=== PATIENT | female | born 1945 | race Caucasian/White ===

== ENCOUNTER 2018-10-13 00:36 | Outpatient (CLI) | payer MEDICARE, SELFPAY ==
--- NOTE | 2018-10-13 12:10 | DI.MAMMO_ITS ---
SYMPTOM/DIAGNOSIS: SCREENING, Z12.31 MAMMOGRAMS: Mammograms were interpreted according to the usual protocol including computer analysis with CAD system, tomosynthesis and C view imaging. Comparison with prior examinations. Breast density B. No suspicious masses or microcalcifications are seen. There is no definite evidence of malignancy. IMPRESSION: Negative mammogram. Routine screening is recommended. Category I. MQSA ASSESSMENT OF FINDINGS: Negative. Category 1. Patient will receive a letter notifying them of these results. BI-RADS category B. There are scattered areas of fibroglandular density.
== END 2018-10-13 00:56 ==
PROVIDERS: PCP Family Medicine; Visit Provider Family Medicine
DX: Z12.31 Encounter for screening mammogram for malignant neoplasm of breast (principal)
CPT/HCPCS: 77063; 77067

== ENCOUNTER 2018-11-04 15:20 | Outpatient (REF) | payer MEDICARE, SELFPAY ==
[2018-11-04 21:54] LABS: Abs Immature Grans 0.01 k/cumm (0.0-0.09); Absolute Basophil Count 0.01 k/cumm (0.0-0.2); Absolute Eosinophil Count 0.15 k/cumm (0.0-0.7); Absolute Monocyte Count 0.36 k/cumm (0.11-0.7); Absolute Neutrophil Count 4.46 k/cumm (1.2-6.7); Basophils % 0.1; Eosinophils % 2.2; HCT 41.4 % (36.0-46.0); HGB 13.7 g/dL (12.0-15.5); Immature Grans % 0.1; Lymphocytes % 27.6; Mean Corp. HGB Concentration 33.1 g/dL (32.0-36.0); Mean Corpuscular Hemoglobin 29.1 pg (27.0-33.0); Mean Corpuscular Volume 87.9 fL (80-95); Mean Platelet Volume 10.7 fL (8.0-11.0); Monocytes % 5.2; Neutrophils % 64.8; Platelet Count 287 x1000/uL (130-400); RBC 4.71 m/cumm (4.00-5.20); RBC Distribution Width 14.5 % (11.7-14.6); White Blood Cell Count 6.89 k/cumm (4.4-10.8)
[2018-11-04 22:21] LABS: ALT 34 U/L (12-78); AST 31 U/L (15-37); Alkaline Phosphatase 126 U/L (46-116); Anion Gap 11.1 mmol/L (3-11); BUN 23 mg/dL (7-18); Bilirubin, Total 0.3 mg/dL (0.2-1.0); CO2 24.9 mmol/L (21.0-32.0); CREATININE 1.04 mg/dL (0.55-1.02); Calcium 9.5 mg/dL (8.5-10.1); Chloride 100 mmol/L (98-107); Estimated GFR 52.09 (mL/min/1.73m2); Glucose 143 mg/dL (70-100); Potassium 3.7 mmol/L (3.5-5.1); Sodium 136 mmol/L (136-145); TSH (W/Ref FT4) 1.71 uIU/mL (0.358-3.74); Total Protein 6.9 g/dL (6.4-8.2)
== END 2018-11-04 15:40 ==
LOC: NCHCN 15:20
PROVIDERS: PCP Family Medicine; Visit Provider Specialist/Technologist Athletic Trainer
DX: R73.03 Prediabetes (principal); I10 Essential (primary) hypertension; Z01.818 Encounter for other preprocedural examination
CPT/HCPCS: 80053; 84443; 85025

== ENCOUNTER 2019-01-27 12:49 | Outpatient (REF) | payer MEDICARE, SELFPAY ==
[2019-01-27 21:10] LABS: Uric Acid 4.8 mg/dL (2.6-6.0)
[2019-01-27 22:04] LABS: Hemoglobin A1C 6.3 % (4.5-6.2)
== END 2019-01-27 13:09 ==
LOC: NCHCN 12:49
PROVIDERS: PCP Family Medicine; Visit Provider Family Medicine
DX: R73.03 Prediabetes (principal); M79.676 Pain in unspecified toe(s)
CPT/HCPCS: 83036; 84550

== ENCOUNTER → 2019-02-28 11:31 | Outpatient (CLI) | payer MEDICARE, SELFPAY ==
--- NOTE | 2019-02-28 11:32 | DI.RAD_ITS ---
SYMPTOM/DIAGNOSIS: RIGHT SHOULDER PAIN RIGHT SHOULDER: Three views. Comparison CT scan is 09/29/18 There are post surgical changes of a right shoulder replacement. No suspicious lucencies are seen in or about the orthopaedic hardware. Dystrophic calcifications are seen about the glenohumeral joint. Mild hypertrophic changes are seen at the acromioclavicular joint The soft tissues are unremarkable.
== END ==
PROVIDERS: PCP Family Medicine; Referring Provider Family Medicine; Visit Provider Student in an Organized Health Care Education/Training Program
DX: M25.511 Pain in right shoulder (principal); Z96.611 Presence of right artificial shoulder joint; Z96.612 Presence of left artificial shoulder joint; I10 Essential (primary) hypertension
CPT/HCPCS: 99203; 99214; 73030

== ENCOUNTER 2019-06-27 15:14 | Outpatient (REF) | payer MEDICARE, SELFPAY ==
[2019-06-27 21:26] LABS: Abs Immature Grans 0.01 k/cumm (0.0-0.09); Absolute Basophil Count 0.02 k/cumm (0.0-0.2); Absolute Eosinophil Count 0.27 k/cumm (0.0-0.7); Absolute Lymphocyte Count 1.97 k/cumm (1.2-3.4); Absolute Monocyte Count 0.49 k/cumm (0.11-0.7); Absolute Neutrophil Count 5.27 k/cumm (1.2-6.7); Basophils % 0.2; Eosinophils % 3.4; HCT 42.3 % (36.0-46.0); HGB 13.9 g/dL (12.0-15.5); Immature Grans % 0.1; Lymphocytes % 24.5; Mean Corp. HGB Concentration 32.9 g/dL (32.0-36.0); Mean Corpuscular Hemoglobin 29.1 pg (27.0-33.0); Mean Corpuscular Volume 88.5 fL (80-95); Mean Platelet Volume 10.4 fL (8.0-11.0); Monocytes % 6.1; Neutrophils % 65.7; Platelet Count 322 x1000/uL (130-400); RBC 4.78 m/cumm (4.00-5.20); RBC Distribution Width 14.4 % (11.7-14.6); White Blood Cell Count 8.03 k/cumm (4.4-10.8)
[2019-06-27 21:31] LABS: ALT 37 U/L (14-59); AST 23 U/L (15-37); Albumin 4.1 g/dL (3.4-5.0); Alkaline Phosphatase 134 U/L (46-116); BUN 22 mg/dL (7-18); Bilirubin, Total 0.2 mg/dL (0.2-1.0); CREATININE 1.18 mg/dL (0.55-1.02); Calcium 9.9 mg/dL (8.5-10.1); Chloride 104 mmol/L (98-107); Glucose 114 mg/dL (70-100); Potassium 5.2 mmol/L (3.5-5.1); Sodium 141 mmol/L (136-145)
[2019-06-27 22:17] LABS: Hemoglobin A1C 6.3 % (4.5-6.2)
== END 2019-06-27 15:34 ==
LOC: NCHCN 15:14
PROVIDERS: PCP Family Medicine; Visit Provider Nurse Practitioner Family
DX: R73.03 Prediabetes (principal); R21 Rash and other nonspecific skin eruption
CPT/HCPCS: 80053; 83036; 85025

== ENCOUNTER 2019-09-02 10:14 | Outpatient (CLI) | payer MEDICARE, SELFPAY ==
--- NOTE | 2019-09-02 10:07 | DI.RAD_ITS ---
EXAM: XR HIP RT COMPLETE AP PELVIS CLINICAL HISTORY: PAIN TECHNIQUE: COMPARISON: No exams were available for comparison FINDINGS: Two views were obtained. There is moderate narrowing of the cartilaginous joint spaces of both hips. Mild SI joint DJD noted bilaterally. Pederson rods noted at the L4-5 level. Mild subchondral sclerosis and osteophyte formation of the acetabula noted bilaterally. The femoral heads appear intact. IMPRESSION: Moderate DJD both hips.
== END 2019-09-02 10:34 ==
PROVIDERS: PCP Family Medicine; Referring Provider Family Medicine; Visit Provider Student in an Organized Health Care Education/Training Program
DX: M16.0 Bilateral primary osteoarthritis of hip (principal); M25.551 Pain in right hip; M70.61 Trochanteric bursitis, right hip
CPT/HCPCS: 99214; 73502

== ENCOUNTER 2020-01-25 13:55 | Outpatient (CLI) | payer MEDICARE, SELFPAY ==
--- NOTE | 2020-01-25 13:30 | DI.RAD_ITS ---
EXAM: XR SHOULDER LT COMPLETE 2+V CLINICAL HISTORY: LEFT SHOULDER PAIN. TECHNIQUE: 2D digital imaging was performed. COMPARISON: CR RIGHT CLAVICLE from 05/28/2011 FINDINGS: BONES: A left glenohumeral joint prosthesis is seen. No acute fracture is present. No bony destructi ve lesion is seen. There is some spurring at the undersurface of the acromion. JOINTS: No dislocation present. SOFT TISSUE: Normal. IMPRESSION: Unremarkable left shoulder prosthesis. DATA REPOSITORY: RADIATION DOSE DELIVERED:
== END 2020-01-25 14:15 ==
PROVIDERS: PCP Family Medicine; Referring Provider Family Medicine; Visit Provider Student in an Organized Health Care Education/Training Program
DX: M25.512 Pain in left shoulder (principal); Z96.612 Presence of left artificial shoulder joint; M19.012 Primary osteoarthritis, left shoulder; Z96.611 Presence of right artificial shoulder joint; M75.101 Unspecified rotator cuff tear or rupture of right shoulder, not specified as traumatic; M75.102 Unspecified rotator cuff tear or rupture of left shoulder, not specified as traumatic
CPT/HCPCS: 99205; 99215; 73030

== ENCOUNTER 2020-01-30 12:20 | Outpatient (REF) | payer MEDICARE, SELFPAY ==
[2020-01-30 20:59] LABS: Hemoglobin A1C 6.1 % (3.8-5.6)
[2020-01-30 21:07] LABS: Anion Gap 11.3 mmol/L (3-11); BUN 19 mg/dL (7-18); C-Reactive Protein 0.29 mg/dL (0.0-0.3); CO2 25.7 mmol/L (21.0-32.0); CREATININE 0.85 mg/dL (0.55-1.02); Calcium 9.2 mg/dL (8.5-10.1); Chloride 102 mmol/L (98-107); Glucose 109 mg/dL (74-106); Potassium 4.2 mmol/L (3.5-5.1); Sodium 139 mmol/L (136-145); TSH (W/Ref FT4) 1.33 uIU/mL (0.36-3.74)
[2020-01-30 21:12] LABS: Abs Immature Grans 0.01 k/cumm (0.0-0.09); Absolute Basophil Count 0.01 k/cumm (0.0-0.2); Absolute Lymphocyte Count 1.52 k/cumm (1.2-3.4); Absolute Monocyte Count 0.32 k/cumm (0.11-0.7); Absolute Neutrophil Count 4.38 k/cumm (1.2-6.7); Basophils % 0.2; Eosinophils % 3.1; HCT 41.8 % (36.0-46.0); HGB 13.8 g/dL (12.0-15.5); Immature Grans % 0.2 %; Lymphocytes % 23.6; Mean Corpuscular Hemoglobin 29.2 pg (27.0-33.0); Mean Corpuscular Volume 88.4 fL (80-95); Mean Platelet Volume 10.9 fL (8.0-11.0); Neutrophils % 67.9; Platelet Count 274 x1000/uL (130-400); RBC 4.73 m/cumm (4.00-5.20); RBC Distribution Width 14.5 % (11.7-14.6); White Blood Cell Count 6.44 k/cumm (4.4-10.8)
[2020-01-30 22:35] LABS: ESR 11 mm/hr (0-30)
== END 2020-01-30 12:40 ==
LOC: NCHCN 12:20
PROVIDERS: PCP Family Medicine; Visit Provider Family Medicine
DX: R73.03 Prediabetes (principal); N28.9 Disorder of kidney and ureter, unspecified; I10 Essential (primary) hypertension
CPT/HCPCS: 80048; 85652; 83036; 84443; 85025; 86140

== ENCOUNTER 2020-02-01 01:47 | Outpatient (CLI) | payer MEDICARE, SELFPAY ==
--- NOTE | 2020-02-01 15:57 | DI.CT_ITS ---
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 Visualized left lung is clear. No soft tissue abnormality seen involving the mediastinu m. There is total shoulder arthroplasty in position. Allowing for imaging artifact from metallic compon ents, there is no evidence of loosening or dislocation. No fracture identified. Moderate hypertroph ic degenerative change of the acromioclavicular joint noted. There is osseous body projected inferio r to the glenoid anteriorly. IMPRESSION: No evidence of loosening of total shoulder arthroplasty components by CT criteria.
== END 2020-02-01 02:07 ==
PROVIDERS: PCP Family Medicine; Visit Provider Student in an Organized Health Care Education/Training Program
DX: M25.512 Pain in left shoulder (principal); M19.012 Primary osteoarthritis, left shoulder; Z96.612 Presence of left artificial shoulder joint
CPT/HCPCS: 73200

== ENCOUNTER → 2020-02-15 11:02 | Outpatient (BNVA) | payer MEDICARE, SELFPAY | PROVIDERS: PCP Family Medicine; Referring Provider Family Medicine; Visit Provider Student in an Organized Health Care Education/Training Program | DX: M25.512 Pain in left shoulder (principal); Z96.611 Presence of right artificial shoulder joint; Z96.612 Presence of left artificial shoulder joint; M75.101 Unspecified rotator cuff tear or rupture of right shoulder, not specified as traumatic; M12.811 Other specific arthropathies, not elsewhere classified, right shoulder; M12.812 Other specific arthropathies, not elsewhere classified, left shoulder; M75.102 Unspecified rotator cuff tear or rupture of left shoulder, not specified as traumatic; M65.342 Trigger finger, left ring finger | CPT/HCPCS: 99214 ==

== ENCOUNTER 2020-05-17 14:59 | Outpatient (REF) | payer MEDICARE, SELFPAY ==
[2020-05-17 19:54] LABS: ALT 33 U/L (14-59); AST 27 U/L (15-37); Albumin 4.1 g/dL (3.4-5.0); Alkaline Phosphatase 124 U/L (46-116); Anion Gap 7.6 mmol/L (3-11); BUN 23 mg/dL (7-18); Bilirubin, Total 0.3 mg/dL (0.2-1.0); CO2 30.4 mmol/L (21.0-32.0); CREATININE 0.89 mg/dL (0.55-1.02); Calcium 10.3 mg/dL (8.5-10.1); Chloride 101 mmol/L (98-107); Glucose 97 mg/dL (74-106); Potassium 4.3 mmol/L (3.5-5.1); Sodium 139 mmol/L (136-145); Total Protein 7.1 g/dL (6.4-8.2)
[2020-05-17 19:57] LABS: Hemoglobin A1C 6.1 % (<5.7)
== END 2020-05-17 15:19 ==
LOC: NCHCN 14:59
PROVIDERS: PCP Family Medicine; Visit Provider Family Medicine
DX: R73.03 Prediabetes (principal); N28.9 Disorder of kidney and ureter, unspecified
CPT/HCPCS: 80053; 83036

== ENCOUNTER 2020-05-31 11:55 | Outpatient (CLI) | payer MEDICARE, SELFPAY ==
--- NOTE | 2020-05-31 11:30 | DI.RAD_ITS ---
EXAM: XR KNEE RT 4V AP,LAT,EDGARDO,PAT INDICATION: rt knee pain sp replacement. COMPARISON: CR XR KNEE 4 VIEW RIGHT from 07/28/2019 TECHNIQUE: 2D digital imaging was performed. FINDINGS: There has been no change in the appearance of total knee prosthesis or surrounding bone. DATA REPOSITORY: RADIATION DOSE DELIVERED:
== END 2020-05-31 12:15 ==
PROVIDERS: PCP Family Medicine; Referring Provider Family Medicine; Visit Provider Student in an Organized Health Care Education/Training Program
DX: M25.561 Pain in right knee (principal); Z96.651 Presence of right artificial knee joint; T84.84XA Pain due to internal orthopedic prosthetic devices, implants and grafts, initial encounter; Z96.653 Presence of artificial knee joint, bilateral; I10 Essential (primary) hypertension
CPT/HCPCS: 99213; 73564

== ENCOUNTER 2020-06-13 12:38 | Outpatient (CLI) | payer MEDICARE, SELFPAY ==
--- NOTE | 2020-06-13 | DI.RAD_ITS ---
EXAM: XR LUMBAR SPINE AP, LAT CLINICAL HISTORY: NEW MRI SHOWING DDD ABOVE FUSION,ASSESS FOR MOTION,LUMBAR RADICULOPATHY. TECHNIQUE: 2D digital imaging was performed. COMPARISON: CT ABD PELVIS WITH CONTRAST from 08/21/2015 FINDINGS: There are 5 lumbar type vertebral bodies. There is a mild left convex scoliosis. Since the prior CT scan posterior spinal surgery is seen at L4 and L5. There is grade 1 pseudo spondylolisthesis of L3 on L4. Degenerative changes are seen in the lumbar spine with multilevel disc space narrowing and e ndplate osteophytes. Degenerative changes of the facets are present. No acute fractures are seen. IMPRESSION: Grade 1 pseudo spondylolisthesis of L3 on L4. No significant motion with flexion or extension. DATA REPOSITORY: RADIATION DOSE DELIVERED:
== END 2020-06-13 12:58 ==
PROVIDERS: PCP Family Medicine; Visit Provider Neurological Surgery
DX: M43.16 Spondylolisthesis, lumbar region (principal)
CPT/HCPCS: 72100

== ENCOUNTER → 2020-09-28 09:57 | Outpatient (BNVA) | payer MEDICARE, SELFPAY | PROVIDERS: PCP Family Medicine; Referring Provider Family Medicine; Visit Provider Student in an Organized Health Care Education/Training Program | DX: M70.61 Trochanteric bursitis, right hip (principal); M16.11 Unilateral primary osteoarthritis, right hip | CPT/HCPCS: 20610; J1040 ==

== ENCOUNTER 2020-10-04 22:32 | Outpatient (REF) | payer MEDICARE, SELFPAY ==
[2020-10-04 19:58] LABS: ALT 33 U/L (14-59); AST 20 U/L (15-37); Alkaline Phosphatase 135 U/L (46-116); BUN 33 mg/dL (7-18); Bilirubin, Total 0.3 mg/dL (0.2-1.0); Calcium 9.5 mg/dL (8.5-10.1); Chloride 104 mmol/L (98-107); Glucose 110 mg/dL (74-106); Magnesium 2.1 mg/dL (1.8-2.4); Potassium 4.4 mmol/L (3.5-5.1); Sodium 138 mmol/L (136-145); Total Protein 7.3 g/dL (6.4-8.2)
== END 2020-10-04 22:33 | disposition home or self-care (01) ==
LOC: NCHCN 22:32
PROVIDERS: PCP Family Medicine; Visit Provider Nurse Practitioner Family
DX: R25.2 Cramp and spasm (principal)
CPT/HCPCS: 80053; 83735

== ENCOUNTER 2020-10-26 16:08 | Outpatient (REF) | payer MEDICARE, SELFPAY ==
[2020-10-26 16:13] LABS: HCT 39.7 % (36.0-46.0); HGB 12.8 g/dL (11.2-15.7); MCH 28.6 pg (27.0-33.0); MCHC 32.2 % (32.0-36.0); MCV 88.8 fL (80-95); MPV 10.1 fL (8.0-11.0); Platelet Count 189 10^3/uL (130-400); RBC 4.47 10^6/uL (3.93-5.22); RDW 13.5 % (11.7-14.6); RDW-SD 44.1 fL; WBC 5.34 10^3/uL (4.4-10.8)
[2020-10-26 16:27] LABS: BUN 23 mg/dL (7-18); CREATININE 0.9 mg/dL (0.55-1.02); Calcium 8.8 mg/dL (8.5-10.1); Chloride 98 mmol/L (98-107); Glucose 97 mg/dL (74-106); Potassium 4.7 mmol/L (3.5-5.1); Sodium 136 mmol/L (136-145)
[2020-10-26 16:46] LABS: Hemoglobin A1C 6.5 % (<5.7)
== END 2020-10-26 16:09 | disposition home or self-care (01) ==
LOC: NCHCN 16:08
PROVIDERS: PCP Family Medicine; Visit Provider Family Medicine
DX: Z01.818 Encounter for other preprocedural examination (principal); R73.09 Other abnormal glucose
CPT/HCPCS: 80048; 85027; 83036

== ENCOUNTER 2020-11-20 01:34 | Outpatient (CLI) | payer MEDICARE, SELFPAY ==
--- NOTE | 2020-11-20 10:08 | DI.RAD_ITS ---
EXAM: XR LUMBAR SPINE 1V ONLY CLINICAL HISTORY: S/P LUMBAR FUSION,Z98.1. TECHNIQUE: 2D digital imaging was performed. COMPARISON: CR XR LUMBAR SPINE AP, LAT from 06/13/2020 FINDINGS: A single lateral view was obtained of the lumbar spine as requested. Since the prior examination the patient has undergone a revision of the lumbar spine surgery. Posterior spinal surgical changes are now seen from L3 through L5. An intervertebral disc device is seen at L4-L5. There is persistent g rade 1 pseudo spondylolisthesis of L3 on L4. Disc space narrowing is seen at L1-L2, L3-L4 and L5-S1. There are endplate osteophytes throughout the lumbar spine. Atherosclerosis is present. IMPRESSION: DATA REPOSITORY: RADIATION DOSE DELIVERED:
== END 2020-11-20 01:54 ==
PROVIDERS: PCP Family Medicine; Visit Provider Physician Assistant Medical
DX: Z98.1 Arthrodesis status (principal); M43.16 Spondylolisthesis, lumbar region; M51.37 Other intervertebral disc degeneration, lumbosacral region
CPT/HCPCS: 72020

== ENCOUNTER 2020-12-07 19:01 | Outpatient (REF) | payer MEDICARE, SELFPAY ==
[2020-12-07 18:45] LABS: Abs Immature Grans 0.01 10^3/uL (0.0-0.06); Absolute Basophil Count 0.02 10^3/uL (0.0-0.2); Absolute Eosinophil Count 0.16 10^3/uL (0.0-0.7); Absolute Lymphocyte Count 1.38 10^3/uL (1.2-3.4); Absolute Monocyte Count 0.27 10^3/uL (0.1-0.8); Absolute Neutrophil Count 4.02 10^3/uL (1.2-6.7); Basophils % 0.3; Eosinophils % 2.7; HCT 39.8 % (36.0-46.0); Immature Grans % 0.2; Lymphocytes % 23.5; MCH 29.5 pg (27.0-33.0); MCHC 32.7 % (32.0-36.0); MCV 90.2 fL (80-95); MPV 10.1 fL (8.0-11.0); Monocytes % 4.6; Neutrophils % 68.7; Nucleated RBC 0 %; Platelet Count 262 10^3/uL (130-400); RBC 4.41 10^6/uL (3.93-5.22); RDW 13.5 % (11.7-14.6); RDW-SD 44.6 fL; WBC 5.86 10^3/uL (4.4-10.8)
[2020-12-07 18:47] LABS: ESR 15 mm//hr (0-30)
[2020-12-07 19:25] LABS: Vitamin B12 735 pg/mL (193-986)
[2020-12-07 19:45] LABS: C-Reactive Protein 0.26 mg/dL (0.0-0.3)
== END 2020-12-07 19:02 | disposition home or self-care (01) ==
LOC: NCHCN 19:01
PROVIDERS: PCP Family Medicine; Visit Provider Family Medicine
DX: M54.5 Low back pain (principal); R44.8 Other symptoms and signs involving general sensations and perceptions; R13.10 Dysphagia, unspecified
CPT/HCPCS: 85652; 82607; 85025; 86140

== ENCOUNTER 2021-03-11 00:53 | Outpatient (CLI) | payer MEDICARE, SELFPAY ==
--- NOTE | 2021-03-11 | DI.RAD_ITS ---
Exam(s) XR LUMBAR SPINE FLEX/EXT ONLY EXAM: XR LUMBAR SPINE FLEX/EXT ONLY CLINICAL HISTORY: S/P LUMBAR FUSION,Z98.1. TECHNIQUE: 2D digital imaging was performed. COMPARISON: CR XR LUMBAR SPINE 1V ONLY from 11/20/2020 FINDINGS: Again noted is the posterior fusion hardware, as previously described. There is posterior fusion sanjay s and intrapedicular screws at L3-4 level. The amount of anterolisthesis of L3 upon L4 as well as th e advanced disc space narrowing at L3-4 level appears unchanged.. The anterior aspect of the intra p edicular screws at this level are cyst within the pedicles at the L3 level and within the posterior h jail of the L4 vertebral body, similar to previous. There is an intervertebral disc space device at L4-5 level. Posterior aspect of this devices flush r elative to the posterior cortices of L4 and L5. Posterior fusion hardware at L5 level is noted which is independent of the L3-4 level hardware. Rela tionship of the intra pedicular screws at this level relative to the superior endplates is satisfacto ry. Other levels appear unchanged. There is mild retrolisthesis of L2 upon L3 again noted and there appears to be a bulging soft tissue density at L2-3 level which is probably bulging annulus or disc protrusion. This is 1 level above the superior aspect of the fusion. If clinically indicated this c ould be further studied with MRI. IMPRESSION: DATA REPOSITORY: RADIATION DOSE DELIVERED:
== END 2021-03-11 01:13 ==
PROVIDERS: PCP Family Medicine; Visit Provider Neurological Surgery
DX: Z98.1 Arthrodesis status (principal)
CPT/HCPCS: 72120

== ENCOUNTER 2021-04-04 17:43 | Outpatient (REF) | payer MEDICARE, SELFPAY ==
[2021-04-04 19:40] LABS: HCT 40.6 % (36.0-46.0); MCH 28.7 pg (27.0-33.0); MCV 89.6 fL (80-95); MPV 10.3 fL (8.0-11.0); Platelet Count 249 10^3/uL (130-400); RBC 4.53 10^6/uL (3.93-5.22); RDW 13.5 % (11.7-14.6); RDW-SD 44.2 fL; WBC 6.41 10^3/uL (4.4-10.8)
[2021-04-04 19:57] LABS: Iron 63 ug/dL (50-170)
[2021-04-04 20:04] LABS: Hemoglobin A1C 6.3 % (<5.7)
[2021-04-04 20:09] LABS: Ferritin 84 ng/mL (8-252)
== END 2021-04-04 17:44 | disposition home or self-care (01) ==
LOC: NCHCN 17:43
PROVIDERS: PCP Family Medicine; Visit Provider Family Medicine
DX: R06.00 Dyspnea, unspecified (principal); R25.2 Cramp and spasm
CPT/HCPCS: 85027; 82728; 83036; 83540

== ENCOUNTER 2021-05-27 01:43 | Outpatient (CLI) | payer MEDICARE, SELFPAY ==
--- NOTE | 2021-05-27 11:45 | DI.MRI_ITS ---
Exam(s) MR LOWER EXTREMITY RT WO EXAM: MR LOWER EXTREMITY RT WO CLINICAL HISTORY: RT LEG PAIN, M79.604,FROM INGUINAL TO KNEE TECHNIQUE: Multiplanar multisequence MRI was performed. COMPARISON: CR XR KNEE RT 4V AP,LAT,EDGARDO,PAT from 05/31/2020 CR XR KNEE RT 4V AP,LAT,EDGARDO,PAT from 05/31/2020 FINDINGS: There is artifact from the right knee prosthesis. MARROW:There is no evidence of fracture, bone contusion, nor avascular necrosis. There are no signif icant osseous lesions. EXTRAMUSCULAR SOFT TISSUES: There is fluid signal lateral to the greater trochanter consistent with t endinitis and/bursitis at this level. There is no abnormal intra osseous signal in the adjacent grea ter trochanter. MUSCLES: There is intramuscular signal abnormality at and distal to the musculotendinous junction of the quadriceps.No similar abnormal signal seen in the vastus medialis and lateralis nor in the vastus intermedius. There is no associated fluid collection nor intermuscular fluid collection. OTHER: None. IMPRESSION: 1. There is intramuscular signal abnormality in the quadriceps femoris muscle proximal to and at the musculotendinous junction, not associated with intramuscular hematoma. Myositis signal evident at th is level. Small fluid collection. No other muscles involved. No muscle atrophy. 2. There is also fluid signal in the soft tissues immediately lateral to the greater trochanter of th e hip consistent with tendinitis-bursitis. Correlation any recent therapeutic injections at this lev el is recommended as therapeutic injection at this level can have similar MRI appearance. 3. Ipsilateral knee joint prosthesis. DATA REPOSITORY:
== END 2021-05-27 02:03 ==
PROVIDERS: PCP Family Medicine; Visit Provider Family Medicine
DX: M79.604 Pain in right leg (principal); Z96.653 Presence of artificial knee joint, bilateral; R93.6 Abnormal findings on diagnostic imaging of limbs
CPT/HCPCS: 73718

== ENCOUNTER 2021-09-24 18:48 | Outpatient (REF) | payer MEDICARE, SELFPAY ==
[2021-09-26 14:24] LABS: COVID-19 RT-PCR UVMMC Result Negative (Negative)
== END 2021-09-24 18:49 | disposition home or self-care (01) ==
LOC: NCHCN 18:48
PROVIDERS: PCP Family Medicine; Visit Provider Family Medicine
DX: Z20.822 Contact with and (suspected) exposure to COVID-19 (principal); J06.9 Acute upper respiratory infection, unspecified
CPT/HCPCS: U0003

== ENCOUNTER 2021-10-14 04:37 | Outpatient (CLI) | payer MEDICARE, SELFPAY ==
[2021-10-14] MEDS: Albuterol HFA 18 GM 200 PUFF INH IH (11:24)
[2021-10-14] MEDS: Methacholine 100 MG VIAL IH (11:25)
[2021-10-14] MEDS: Inhaler, Assist Device 1 EACH MC (11:25)
== END 2021-10-14 04:38 | disposition home or self-care (01) ==
LOC: RT 04:37
PROVIDERS: PCP Family Medicine; Visit Provider Family Medicine
DX: R06.09 Other forms of dyspnea (principal); R05.8 Other specified cough; Z87.891 Personal history of nicotine dependence; R94.2 Abnormal results of pulmonary function studies
CPT/HCPCS: 94060; 94070; 94726; 94729; 94010; J7674

== ENCOUNTER 2021-10-15 15:59 | Outpatient (REF) | payer MEDICARE, SELFPAY ==
[2021-10-15 19:28] LABS: C-Reactive Protein 2.02 mg/dL (0.0-0.3)
[2021-10-15 19:34] LABS: ESR 36 mm/hr (0-30)
[2021-10-16 17:16] LABS: Rheumatoid Factor <8.6 IU/mL (<12.0)
[2021-10-17 14:21] LABS: ANA Interpretation Positive (Negative); ANA Titer Pattern 1:80 Homogeneous
== END 2021-10-15 16:00 | disposition home or self-care (01) ==
LOC: NCHCN 15:59
PROVIDERS: PCP Family Medicine; Visit Provider Family Medicine
DX: M54.59 Other low back pain (principal)
CPT/HCPCS: 85652; 86038; 86140; 86431

== ENCOUNTER 2021-10-24 01:32 | Outpatient (CLI) | payer MEDICARE, SELFPAY ==
--- NOTE | 2021-10-24 09:15 | DI.NM_ITS ---
APPROVED REPORT Exam: Pharmacologic Patient Location: Out-Patient Room/Bed: Stress Nurse: Minoo Rainey RN Ordering Provider:TALIA CAR, Contact Number: [phone] BMI: 37.59 Baseline Rhythm: Sinus Rhythm Indications: Chest wall pain, dyspnea, cough Medical History Medical History: Hypertension, prediabetes, obesity, asthma, gerd, Adamson's Palsy, anxiety/depression, retinal artery occlusion of R eye Cardiac Medications: Nitroglycerin SL, losartan, losartan-HCTZ, albuterol sulfate Allergies: cephalexin, diclofenac, diltiazem, gabapentin, gadoterate, meglumine, misoprostol, prednis one, tramadol, hydromorphone, propoxyphene HCL Cardiac Risk Factors: Hypertension, prediabetes, asthma, obesity, smoker (former), PVD, family hx Previous Cardiac Procedures: None Pretest Chest Pain Characteristics: None Exercise History: Sedentary Physical Disabilities: Back and BLE pain Lung Sounds: Clear to auscultation Heart Sounds: Regular Stress Test Details Test: Pharmacologic stress was paired with low level exercise. Reason for pharmacologic stress test: physical limitation. Nuclear Acquisition: Rest Tc-99m/Stress Tc-99m 1 day Rest Isotope: Tc-99m Sestamibi. Dose: 10.5 Date: 10/24/2021 Injection Time: 0945 Stress Isotope: Tc-99m Sestamibi. Dose: 32.0 Date: 10/24/2021 Injection Time: 1140 HR Resting HR Supine: 78 bpm Max Heart Rate (APMHR): 145.387722 bpm Resting HR Standin bpm Target HR (85% APMHR): 123.433810 bpm Max HR Achieved: 118 bpm % of APMHR: 81.38 Recovery HR: 93 bpm BP Resting BP Supine: 138/76 mmHg Resting BP Standin/82 mmHg Max BP: 170/78 mmHg Recovery BP: 143/76 mmHg ECG Resting ECG: Sinus Rhythm Ectopy: None Stress ECG: Sinus Tachycardia ST Change: Nondiagnostic low heart rate Arrhythmia: None Recovery ECG: Sinus Rhythm Recovery ST Change: Nondiagnostic low heart rate Recovery Arrhythmia: Rare VPC Clinical Stress Symptoms: General Fatigue, Dyspnea Exercise capacity: 1.31 METs Rate Pressure Product: Stress ECG Conclusion 1. The resting electrocardiogram was within normal limits 2. Patient underwent low-level exercise coupled with pharmacologic stress 3. Peak heart rate achieved was 81% of predicted heart rate for age 4. The electrocardiographic portion of the test was nondiagnostic due to inadequate heart rate 5. See MPI report Stress Test Summary STAGE HR BP Symptoms NOTES Supine 78 138/76 SpO2 96% 1 min post Lexiscan injection 114 144/90 Moderate SOB SpO2 96% 3 min post Lexiscan injection 114 170/78 Mild SOB SpO2 97% 6 min post Lexiscan injection 105 146/74 Mild SOB SpO2 98% 9 min post Lexiscan injection 93 SOB resolved SpO2 98% Pharmacologic stress was paired with low level exercise due to pt physical limitation. Pt exercised a t 0.4mph and 0% grade. Tolerated low level exercise and Lexiscan well. MPI Conclusion Normal myocardial perfusion without evidence of ischemia or prior infarction Left ventricular wall motion is normal. Calculated EF is 42% Radiologist Interpretation Radiologist agrees with Sheet Taker's Interpretation. Radiologist Interpretation by: Gavin Landeros MD Interpretation Date/Time: 10/25/2021 08:45:49
[2021-10-24] MEDS: Regadenoson 0.4 MG/5 ML SYR IVP (11:58)
== END 2021-10-24 01:52 ==
PROVIDERS: PCP Family Medicine; Visit Provider Family Medicine
DX: R06.89 Other abnormalities of breathing (principal); R07.9 Chest pain, unspecified; R05.9 Cough, unspecified
CPT/HCPCS: 78452; 93016; 93018; 93017; J2785

== ENCOUNTER → 2021-11-25 01:12 | Outpatient (CLI) | payer MEDICARE, SELFPAY ==
--- NOTE | 2021-11-25 14:00 | DI.US_ITS ---
APPROVED REPORT EXAM: Comprehensive 2D, Doppler, and color-flow Echocardiogram Patient Location: Out-Patient Administrative Sales Assistant: Abigail Stephens RDCS (AE) Indications: GO Other Information Study Quality: Adequate Conclusion Normal left ventricular wall thickness and chamber size. Estimated ejection fraction is 60%. Wall m otion is normal Normal right ventricular size and systolic function Both atria are normal in size There is no structural or hemodynamically significant valvular disease Wall motion Left Ventricle The left ventricle is normal size. The left ventricular systolic function is normal. The left ventric ular ejection fraction is within the normal range. There is normal left ventricular wall thickness. T here is normal LV segmental wall motion. There is no ventricular septal defect visualized. LVEF is 58 %. Right Ventricle The right ventricle is normal size. The right ventricular systolic function is normal. The RVSP is 26 .0mmHg. Atria The left atrium size is normal. The right atrium size is normal. The interatrial septum is intact wit h no evidence for an atrial septal defect. Aortic Valve The aortic valve is normal in structure. Aortic valve is trileaflet. There is no aortic valvular sten osis. No aortic regurgitation is present. Mitral Valve The mitral valve is normal in structure. No evidence of mitral valve stenosis. Trace mitral regurgita tion. Tricuspid Valve The tricuspid valve is normal in structure. There is no tricuspid valve stenosis. Trace tricuspid reg urgitation. Pulmonic Valve The pulmonary valve is normal in structure. There is no pulmonic valvular stenosis. There is no pulmo carlos valvular regurgitation. Great Vessels The aortic root is normal in size. The ascending aorta is normal in size. Aortic arch is not well vis ualized. IVC is normal in size and collapses >50% with inspiration. Pericardium There is no pericardial effusion. 2D Dimensions IVSD d PLAX 1.00 cm F: 0.6-1.0 LV Vol A2C d MOD 116.0 mL LVPW d PLAX 1.00 cm F: 0.6 - 1.0 LV Vol A4C d MOD 82.3 mL LVID d PLAX 4.79 cm F: 3.8 - 5.2 LA vol/ BSA A2C s A-L 18.8 mL/m2 LVDs 3.30 cm F: 2.2 - 3.5 LA vol/ BSA A4C s A-L 13.1 mL/m2 Ao Root d 2.91 cm F: 2.7 - 3.3 LA Vol/ BSA Biplane s A-L 16.4 mL/m2 RA Area A4C 13.66 cm2 LA Area A4C s MOD 11.70 cm2 RA Vol/ BSA A4C s A-L 18.8 mL/m2 LA Area A2C s MOD 13.39 cm2 Ao Asc Diam d 2.84 cm F: 2.3 - 3.1 LV EF A4C MOD 58.2 % LV EF Teichholz 58.6 % LV EF A2C MOD 58.0 % LVEF (Montgomery's) 58.53 % F: 54 - 74 LV EF Biplane MOD 58.5 % LV Volume 76.98 mL F: 46 - 106 SV 58.75 mL LV Volume Index 41.16 mL/m2 F: 29 - 61 SV Index 31.37 mL/m2 LV Vol Biplane MOD 100.4 mL FS 30.95 % M-Mode TAPSE 1.80 cm (M/F) >1.7 LV Diastology MV E' medial 0.068 (>0.07 m/s) E/A Ratio 0.6 LV E/e MED 10.85 (<14) MV E Vmax 0.74 (0.4-1.3 m/s) MV E' lateral 0.104 (>0.1 m/s) MV A Vmax 1.20 (0.4-1.3 m/s) LV E/e LAT 7.15 (<14) MV E/A Ratio 0.60 MV E/E' medial 10.86 MV E/E' lateral 7.17 Aortic Valve LVOT Area 2.57 cm2 AoV Area Vmax 1.97 cm2 LVOT Vmax 1.22 m/s AoV Area/ BSA (Vmax) 1.05 cm2/m2 LVOT Mean Kvng. 0.74 m/s RAMÍREZ Mean Kvng. 1.72 cm2 LVOT Peak Grad 6.0 mmHg RAMÍREZ Mean Kvng. Index 0.92 cm2/m2 LVOT Mean Grad 2.7 mmHg LVOT VTI 0.209 m LVOT Diam s 1.80 cm AoV Vmax 1.60 m/s Velocity Ratio 0.76 AoV Mean Kvng. 1.11 m/s AoV Peak Grad 10.2 mmHg LVOT SV 53.69 mL AoV Mean Grad 5.5 mmHg AoV VTI 0.249 m AoV Area VTI 2.16 cm2 AoV Area/ BSA (VTI) 1.15 cm/m2 Mitral Valve MV DT 389 (160-240 msec) MV PHT 113 msec MV Area PHT 1.95 cm2 MV VTI 0.222 m MV Area VTI 2.42 (4.0-6.0 cm2) Pulmonary Valve PV Vmax 1.28 (0.5-1.5 m/s) RVOT Peak Gr. 3.93 mmHg PV Peak Grad 6.6 mmHg RVOT Mean Gr. 1.65 mmHg PV Mean Grad 3.4 mmHg RVOT VTI 0.153 m PV VTI 0.215 m RVOT Vmax 0.99 m/s Tricuspid Valve TR Peak Grad 22.9 mmHg TR Vmax 2.40 m/s RA Pressure 3.00 mmHg RVSP (TR) 26.0 mmHg
--- NOTE | 2021-11-25 15:00 | DI.CT_ITS ---
Exam(s) CT CHEST WO EXAM: CT CHEST WO CLINICAL HISTORY: CHRONIC COUGH, R05.3; GO, R06.09 TECHNIQUE: Imaging Protocol: Axial computed tomography images with coronal and sagittal reformatted images were created and reviewed CONTRAST MATERIAL: Noncontrast. COMPARISON: CR CHEST 2 VIEWS PA,LAT from 11/23/2014 FINDINGS: Tracheobronchial tree: No bronchiectasis or mucous plugging. Mediastinum and Phuong: No dominant adenopathy or fluid collection. Pulmonary parenchyma: No consolidation or dominant measurable mass. Mild emphysematous and fibrotic c hanges in the upper lobes.. Pleura: No effusion or pneumothorax. Heart: The heart is not dilated. No coronary artery calcifications are seen. Aorta: Thoracic aorta non-dilated. Mild calcification at arch. Upper abdomen: Right renal cyst. Lymph nodes: Within normal limits. Bones: Bilateral shoulder prostheses create artifact. Degenerative changes mid thoracic spine. Soft tissues: Unremarkable. IMPRESSION: Mild emphysematous and fibrotic changes. RADIATION DOSE DELIVERED: 658.19mGy.cm Total DLP DATA REPOSITORY: All CT scans at this facility are submitted to the National Radiology Data Registry (NRDR) Dose Index Registry (DIR) with the [employer] (A[employer]). RADIATION OPTIMIZATION: All CT scans at this facility use at least one of these dose optimization te chniques: automated exposure control; mA and/or kV adjustment per patient size (includes targeted exa ms where dose is matched to clinical indication); or iterative reconstruction.
== END ==
PROVIDERS: PCP Family Medicine; Visit Provider Family Medicine
DX: R05.3 Chronic cough; R06.00 Dyspnea, unspecified
CPT/HCPCS: 71250; 93306

== ENCOUNTER 2021-11-27 12:55 | Outpatient (REF) | payer MEDICARE, SELFPAY | END 2021-11-27 12:56 | disposition home or self-care (01) | LOC: LBN 12:55 | PROVIDERS: PCP Family Medicine; Visit Provider Family Medicine | CPT/HCPCS: 87086 ==

== ENCOUNTER 2021-12-06 01:48 | Outpatient (CLI) | payer MEDICARE, SELFPAY ==
[2021-12-06 10:49] LABS: Hemoglobin A1C 6.6 % (<5.7)
[2021-12-06 11:25] LABS: Anion Gap 8.1 mmol/L (3-11); BUN 20 mg/dL (7-18); C-Reactive Protein 0.47 mg/dL (0.0-0.3); CO2 25.9 mmol/L (21.0-32.0); CREATININE 0.9 mg/dL (0.55-1.02); Calcium 9.3 mg/dL (8.5-10.1); Chloride 101 mmol/L (98-107); Glucose 109 mg/dL (74-106); Magnesium 1.9 mg/dL (1.8-2.4); Potassium 4.3 mmol/L (3.5-5.1); Sodium 135 mmol/L (136-145)
[2021-12-10 14:16] LABS: dsDNA Ab, IgG <12.3 IU/mL (<30.0)
[2021-12-10 14:37] LABS: RNP Ab, IgG 1.6 Units (<20.0); SS-A Antibody 1.2 Units (<20.0); SS-B (La) Ab, IgG 11.6 Units (<20.0); Sm (Smith) Ab, IgG 1.7 Units (<20.0)
== END 2021-12-06 01:49 | disposition home or self-care (01) ==
LOC: LBO 01:48
PROVIDERS: PCP Family Medicine; Visit Provider Family Medicine
DX: R73.03 Prediabetes (principal); R25.2 Cramp and spasm; M19.90 Unspecified osteoarthritis, unspecified site
CPT/HCPCS: 36415; 80048; 83036; 83735; 86140; 86225; 86235

== ENCOUNTER 2022-01-03 11:47 | Outpatient (CLI) | payer MEDICARE, SELFPAY ==
--- NOTE | 2022-01-03 11:45 | RT.EKG_ITS ---
APPROVED REPORT Exam: Resting ECG Reason for Exam: Diff breathing, Excessive cough Patient Location: O HR:86 bpm ECG Measurements Heart Rate 86 AXIS OK 147 P 66 QRSd 104 QRS 52 QT 366 T 60 QTc 439 Conclusion Sinus rhythm...normal P axis, V-rate 60- 99 Normal Electrocardiogram
== END 2022-01-03 11:48 | disposition home or self-care (01) ==
LOC: DI.CM 11:49
PROVIDERS: PCP Family Medicine; Visit Provider Nurse Practitioner Family
DX: R05.9 Cough, unspecified (principal); R06.02 Shortness of breath; R06.89 Other abnormalities of breathing; R07.89 Other chest pain
CPT/HCPCS: 93010

== ENCOUNTER 2022-02-28 20:14 | Outpatient (REF) | payer MEDICARE, SELFPAY | END 2022-02-28 20:15 | disposition home or self-care (01) | LOC: NCHCN 20:14 | PROVIDERS: PCP Family Medicine; Visit Provider Family Medicine | DX: M54.50 Low back pain, unspecified (principal); N39.0 Urinary tract infection, site not specified | CPT/HCPCS: 87077; 87086; 87186 ==

== ENCOUNTER → 2022-03-04 02:55 | Outpatient (CLI) | payer MEDICARE, SELFPAY ==
--- NOTE | 2022-03-04 14:01 | DI.RAD_ITS ---
Exam(s) XR THORACIC SPINE COMPLETE EXAM: XR THORACIC SPINE COMPLETE CLINICAL HISTORY: BACK PAIN THORACIC REGION RT, M54.6. TECHNIQUE: 2D digital imaging was performed of the thoracic spine. Two views were obtained. AP and lateral views were obtained. COMPARISON: CT CT CHEST WO from 11/25/2021 FINDINGS: BONES: There is no fracture or destructive lesion. There is disc space narrowing and endplate osteoph ytes in the thoracic spine predominantly in the midthoracic spine. Posterior lumbar spinal fusion is seen at the inferior aspect of the images. The patient has bilateral total shoulder replacements. DISKS:Alignment is within normal limits. Interverebral disc spaces are maintained. SOFT TISSUE: Visualized lungs are clear. IMPRESSION: Moderate degenerative changes in the thoracic spine. DATA REPOSITORY: RADIATION DOSE DELIVERED:
== END ==
PROVIDERS: PCP Family Medicine; Visit Provider Family Medicine
DX: M47.814 Spondylosis without myelopathy or radiculopathy, thoracic region (principal)
CPT/HCPCS: 72072

== ENCOUNTER 2022-04-01 15:09 | Outpatient (REF) | payer MEDICARE, SELFPAY | END 2022-04-01 15:10 | disposition home or self-care (01) | LOC: NCHCN 15:09 | PROVIDERS: PCP Family Medicine; Visit Provider Family Medicine | DX: R35.0 Frequency of micturition (principal) | CPT/HCPCS: 87086 ==

== ENCOUNTER → 2022-04-28 02:13 | Outpatient (CLI) | payer MEDICARE, SELFPAY ==
--- NOTE | 2022-04-28 | DI.RAD_ITS ---
Exam(s) XR LUMBAR SPINE FLEX/EXT ONLY EXAM: XR LUMBAR SPINE FLEX/EXT ONLY CLINICAL HISTORY: S/P LUMBAR FUSION Z98.1. TECHNIQUE: 2D digital imaging was performed. Standing AP view, standing lateral views in flexion, n eutral and extension. COMPARISON: CR XR LUMBAR SPINE FLEX/EXT ONLY from 03/11/2021 FINDINGS: Posterior fusion hardware with pedicle screws are again noted at the L 3 4 level. There is again sev ere narrowing of the L3-4 disc space as well as spondylolisthesis. L3 spondylolysis is noted. There is no subluxation with flexion or extension. There is a disc spacer at L4-5. Hardware is also seen at the L5 level. There is severe narrowing of the L5-S1 disc space. Mild narrowing of the L1-2 and L2-3 disc spaces with small endplate osteophytes. Mild degenerative changes are noted in the SI alisson nts. There are degenerative changes of the right hip. IMPRESSION: Stable appearance spinal hardware and alignment. Stable degenerative changes. No subluxation with f lexion or extension. DATA REPOSITORY: RADIATION DOSE DELIVERED:
== END ==
PROVIDERS: PCP Family Medicine; Visit Provider Neurological Surgery
DX: Z98.1 Arthrodesis status (principal)
CPT/HCPCS: 72120

== ENCOUNTER → 2022-08-07 12:13 | Outpatient (CLI) | payer MEDICARE, SELFPAY ==
--- NOTE | 2022-08-07 10:15 | DI.RAD_ITS ---
Exam(s) XR CHEST 2V PA LATERAL EXAM: XR CHEST 2V PA LATERAL CLINICAL HISTORY: evaluate pathology CHRONIC COUGH R05.3. TECHNIQUE: 2D digital imaging was performed. COMPARISON: CR CHEST 2 VIEWS PA,LAT from 11/23/2014 FINDINGS: 2 views: Heart size is normal. The mediastinum is not widened. Lungs are clear. No infiltrates nor pleural effusions. There are now bilateral shoulder prostheses. IMPRESSION: No acute pulmonary findings. Bilateral shoulder prostheses now evident. DATA REPOSITORY: RADIATION DOSE DELIVERED:
--- OUTSIDE RECORDS SUMMARY | 2022-08-07 12:18 | XMS_ITS | Continuity of Care Document ---
:1945 Author Organization [facility] Ambulatory Clinics Address [address] [place] [address] Encounter [facility] FIN NBR [id number] Date(s): 07/31/22 - 07/31/22 [facility] Ambulatory Clinics [address] [place], [place] [address] Encounter Diagnosis History of right knee joint replacement (Discharge Diagnosis) - 07/31/22 Discharge Disposition: Home or Self Care Attending Physician: Arpita Buitrago DO Allergies, Adverse Reactions, Alerts Substance Reaction Severity Status diclofenac Unknown Active predniSONE Unknown Active Darvon Unknown Active Keflex Unknown Active Dilaudid Unknown Active traMADol Unknown Active Dotarem Unknown Active Assessment and Plan Future Scheduled TestsRadiologyXR Knee Complete 4+ Views Right 07/29/22 Functional Status 07/31/22 Other exposure to Infectious Disease None Medications gabapentin 100 mg oral capsule 100 mg = 1 cap, Oral, TID, # 90 cap, 0 Refill(s) Start Date: 07/31/22 Status: Orderedlosartan 25 mg oral tablet 25 mg = 1 tab, Oral, Daily, # 30 tab, 0 Refill(s) Start Date: 07/31/22 Status: Orderedmelatonin 10 mg oral capsule 0 Refill(s) Start Date: 07/31/22 Status: Orderednitroglycerin 0.3 mg sublingual tablet 0.3 mg = 1 tab, SL, every 5 min, PRN as needed for chest pain, not to exceed 3 doses/15 min--if painpersists, seek medical attention, # 100 tab, 0 Refill(s) Start Date: 07/31/22 Status: OrderedtiZANidine 4 mg oral tablet 4 mg = 1 tab, Oral, every 8 hr, # 90 tab, 0 Refill(s) Start Date: 07/31/22 Status: Ordered Problem List Condition Confirmation Course Effective Dates Status Health I nformant Status Retinal artery Confirmed Active branch occlusion Chronic cough Confirmed Active Dyspnea on exertion Confirmed Active Abnormal finding on Confirmed Active EKG Gastritis Confirmed Active GERD Confirmed Active (gastroesophageal reflux disease) HTN (hypertension) Confirmed Active Urinary frequency Confirmed Active Low back pain Confirmed Active Prediabetes Confirmed Active Situational Confirmed Active depression Renal insufficiency Confirmed Active Vital Signs Most recent to oldest [Reference Range]: 1 Peripheral Pulse Rate [60-100 bpm] 66 bpm (07/31/22 11:24 AM) Blood Pressure [90-140/60-90 mmHg] 142/80 mmHg *HI* (07/31/22 11:24 AM) Weight 88.45 kg (07/31/22 11:24 AM) Weight Measured (lbs) 194.999 lb (07/31/22 11:24 AM) Height 154.94 cm (07/31/22 11:24 AM) Height/Length Measured (inches) 61 inch (07/31/22 11:24 AM) BSA Measured 1.95 m2 (07/31/22 11:24 AM) Body Mass Index 36.84 kg/m2 (07/31/22 11:24 AM) Social History Social History Type Response Tobacco Never tobacco user Tobacco U se:. Sex Female Physician Outpatient Note Arpita Buitrago, DO: PERFORM Event Display: Office Clinic Note Physician Authored Date: [id number] MARSHALL QUEZADA :1945 Age:76 years Sex:Female Visit Date:07/31/2022 Chief Complaint R knee pain- XR in June History of Present Illness 76-year-old patient??of mine that went through??me approximately 7 years ago.?? I had seen her 10 months ago for annual follow-up and??she had been doing reasonably well.?? She is got??lumbar stenosisand has been through surgery with??neurosurgery in [place].?? She complains of??intermittent achiness affecting the??anterior aspect of the right??proximal tibia.?? Is any??fever??or constitutional symptoms. ??She does relate??a fall??in her home approximately 4 months ago. ??She states it has modestly improved since then.?? She is here today with new x-rays. Physical Exam Vitals & Measurements HR:??66??(Peripheral)?? BP:??142/80?? SpO2:??97%?? HT:??154.94??cm?? WT:??88.45??kg?? BMI:??36.84?? Pain Score:??3?? BSA:??1.95?? On physical exam??she ambulates in the office with a normal gait unassisted. ??Right knee with well-healed midline incision.?? No effusion. ??No signs of infection.?? Really nontender throughout.?? Flexion is to 135 degrees.?? Good ligamentous stability in all planes. ??Normal muscle tone neurovascular intact distally.?? X-rays of the right knee reviewed on the [facility] system demonstrating??total knee components in unchanged alignment with no signs of loosening or settling??and no??periprostheticfractures??appreciated.?? Patella is tracking anatomically. Assessment/Plan Right total knee arthroplasty I think??is more likely than not??fine.?? I am uncertain if the pain she is feeling??is from her knee or her low back.?? There is no appreciable??loosening??on x-ray.?? No changes at all on x-ray.?? It is very possible that the??anterior fall??impact on the knee exacerbated an inflammatory condition that is taking a long time to settle down.?? It is also possible that??a component of this is radicular in nature??or possibly other??incompletely understood medical conditions??causing this pain.?? If this develops any??swelling??or palpable warmth we will certainly do aninfectious work-up.?? I doubt that this is infected but it certainly is possible.?? I reviewed all of this with Latricia today. ??We spent approximately 25 minutes together with 20 of this 25 minutes direct [id number] counseling reviewing this. Problem List/Past Medical History Ongoing Abnormal finding on EKG Chronic cough Dyspnea on exertion Gastritis GERD (gastroesophageal reflux disease) HTN (hypertension) Low back pain Prediabetes Renal insufficiency Retinal artery branch occlusion Situational depression Urinary frequency Historical No qualifying data Medications gabapentin 100 mg oral capsule, 100 mg= 1 cap, Oral, TID losartan 25 mg oral tablet, 25 mg= 1 tab, Oral, Daily melatonin 10 mg oral capsule nitroglycerin 0.3 mg sublingual tablet, 0.3 mg= 1 tab, SL, every 5 min, PRN tiZANidine 4 mg oral tablet, 4 mg= 1 tab, Oral, every 8 hr Allergies Darvon Dilaudid Dotarem Keflex diclofenac predniSONE traMADol Electronically Signed on 07/31/22 12:01 PM Arpita Buitrago DO
--- OUTSIDE RECORDS SUMMARY | 2022-08-07 12:18 | XMS_ITS | Continuity of Care Document ---
:1945 Author Organization [facility] Ambulatory Clinics Address [address] [place] [address] Care Team Providers Name Role Phone Shae Cobos Primary Care Physician Encounter [facility] FIN NBR [id number] Date(s): 05/27/22 - 05/27/22 [facility] Ambulatory Clinics [address] [place] [address]- [place] Assessment and Plan Future AppointmentsFuture Scheduled TestsRadiologyMRI Spine Lumbar w/o Contrast 06/03/22 Social History Social History Type Response Sex Female Patient Care team information PersonnelName: Shae Cobos Address: Address: [address] [address] [place]
--- OUTSIDE RECORDS SUMMARY | 2022-08-07 12:18 | XMS_ITS | Continuity of Care Document ---
:1945 Author Organization [facility] Address [address] [place] [address] Care Team Providers Name Role Phone Shae Cobos Primary Care Physician Encounter [facility] FIN NBR [id number] Date(s): 06/20/22 - 06/20/[address] [address]- Discharge Disposition: Home or Self Care Attending Physician: Shae Cobos Admitting Physician: Shae Cobos Assessment and Plan Future Appointments Results Radiology Reports Exam Date Time Procedure Performing Provider Status 06/20/22 11:10 AM MRI Spine Lumbar w/o Contrast Dennys Tellez (Verified) Notes:(MRI Spine Lumbar w/o Contrast) Reason For Exam: M54.10MRI Spine Lumbar w/o Contrast EXAM DESCRIPTION: MRI Spine Lumbar w/o Contrast 06/20/2022 INDICATION: M54.10 TECHNIQUE: Multiplanar MRI examination of the lumbar spine utilizing T1, fat-suppressed T2 and fast STIR technique. COMPARISON: 01/03/2021 FINDINGS: Status post fusion at L4-5 with bilateral transpedicular screw and plate apparatus with interbody spacer apparatus. Status post fusion at L3-4 with bilateral transpedicular screw and plate apparatus with possible interbody spacer apparatus. Mild anterolisthesis at L3-4 and L4-5 without significant change. Minimal retrolisthesis at L2-3 without significant change. Loss of intervertebral disc stature and signal intensity at L5-S1 on sagittal T2-weighted images consistent with desiccation and degeneration as described previously. L5-S1: Mild diffuse disc bulge with endplate osteophyte formation. No significant spinal stenosis or neural foraminal narrowing L4-5: No significant spinal stenosis. Neural foraminal evaluation is limited by artifact from fixation hardware. No significant neural foraminal narrowing is suspected L3-4: Mild diffuse disc bulge. No significant spinal stenosis. Mild-moderate bilateral neural foraminal narrowing without significant change L2-3: Mild diffuse disc bulge with bilateral facet hypertrophy. No significant spinal stenosis. Mild bilateral neural foraminal narrowing L1-2: Mild diffuse disc bulge. No significant spinal stenosis or neural foraminal narrowing. T8-9: Mild broad-based central/left paracentral disc protrusion with mild relative stenosis and left lateral recess stenosis without significant change. Mild posterior disc bulges at additional levels in the visualized lower thoracic spine without significant stenosis or cord encroachment The conus is normal in morphology and signal intensity and terminates at the L1 level. No suspicious focal marrow lesions with degenerative endplate changes at some levels. No vertebral body compression deformity in the lumbar region. Fluid signal intensity right renal lesion consistent with cyst as described previously. Paraspinal soft tissues are otherwise unremarkable. IMPRESSION: Status post fusion at L3-4 and L4-5 as detailed above. Mild spondylotic changes. No significant lumbar stenosis. Neural foraminal narrowing noted at some levels. No significant interval change from prior study. Please see above discussion for individual level description. Normal conus. JOB #: [id number] Final Signed by: Jovany Thompson MD Signed (Electronic Signature): 06/20/2022 11:33 am Social History Social History Type Response Sex Female MR Lumbar spine WO contrast Jovany Thompson MD: VERIFY, VERIFY Event Display: Report EXAM DESCRIPTION: MRI Spine Lumbar w/o Contrast 06/20/2022 INDICATION: M54.10 TECHNIQUE: Multiplanar MRI examination of the lumbar spine utilizing T1, fat-suppressed T2 and fast STIR technique. COMPARISON: 01/03/2021 FINDINGS: Status post fusion at L4-5 with bilateral transpedicular screw and plate apparatus with interbody spacer apparatus. Status post fusion at L3-4 with bilateral transpedicular screw and plate apparatus with possible interbody spacer apparatus. Mild anterolisthesis at L3-4 and L4-5 without significant change. Minimal retrolisthesis at L2-3 without significant change. Loss of intervertebral disc stature and signal intensity at L5-S1 on sagittal T2-weighted images consistent with desiccation and degeneration as described previously. L5-S1: Mild diffuse disc bulge with endplate osteophyte formation. No significant spinal stenosis or neural foraminal narrowing L4-5: No significant spinal stenosis. Neural foraminal evaluation is limited by artifact from fixation hardware. No significant neural foraminal narrowing is suspected L3-4: Mild diffuse disc bulge. No significant spinal stenosis. Mild-moderate bilateral neural foraminal narrowing without significant change L2-3: Mild diffuse disc bulge with bilateral facet hypertrophy. No significant spinal stenosis. Mild bilateral neural foraminal narrowing L1-2: Mild diffuse disc bulge. No significant spinal stenosis or neural foraminal narrowing. T8-9: Mild broad-based central/left paracentral disc protrusion with mild relative stenosis and left lateral recess stenosis without significant change. Mild posterior disc bulges at additional levels in the visualized lower thoracic spine without significant stenosis or cord encroachment The conus is normal in morphology and signal intensity and terminates at the L1 level. No suspicious focal marrow lesions with degenerative endplate changes at some levels. No vertebral body compression deformity in the lumbar region. Fluid signal intensity right renal lesion consistent with cyst as described previously. Paraspinal soft tissues are otherwise unremarkable. IMPRESSION: Status post fusion at L3-4 and L4-5 as detailed above. Mild spondylotic changes. No significant lumbar stenosis. Neural foraminal narrowing noted at some levels. No significant interval change from prior study. Please see above discussion for individual level description. Normal conus. JOB #: [id number] Final Signed by: Jovany Thompson MD Signed (Electronic Signature): 06/20/2022 11:33 am Patient Care team information Care Team PersonnelName: Shae Cobos Position: No Access Member Role: Primary Care Physician Address: Address: [id number] [place] [address]
--- OUTSIDE RECORDS SUMMARY | 2022-08-07 12:18 | XMS_ITS | Continuity of Care Document ---
:1945 Author Organization [facility] e Address [address] [place] [address] Care Team Providers Name Role Phone Shae Cobos Primary Care Physician Encounter [facility] FIN NBR [id number] Date(s): 06/20/22 - 06/20/[address] [address]- Discharge Disposition: Home or Self Care Attending Physician: Arpita Buitrago DO Admitting Physician: Arpita Buitrago DO Assessment and Plan Future Appointments Results Radiology Reports Exam Date Time Procedure Performing Provider Status 06/20/22 10:10 AM XR Knee Complete 4+ Views Right Haven Rainey (Verified) Notes:(XR Knee Complete 4+ Views Right) Reason For Exam: knee painXR Knee Complete 4+ Views Right EXAM DESCRIPTION: XR Knee Complete 4+ Views Right 06/20/2022 INDICATION: KNEE PAIN COMPARISON: 10/03/2021 IMPRESSION: Status post right total knee arthroplasty with stable satisfactory appearance. No focal lytic or destructive changes. No acute fracture or dislocation. JOB #: [id number] Final Signed by: Jovany Thompson MD Signed (Electronic Signature): 06/20/2022 10:15 am Social History Social History Type Response Sex Female XR Knee - right GE 4 Views Jovany Thompson MD: VERIFY, VERIFY Event Display: Report EXAM DESCRIPTION: XR Knee Complete 4+ Views Right 06/20/2022 INDICATION: KNEE PAIN COMPARISON: 10/03/2021 IMPRESSION: Status post right total knee arthroplasty with stable satisfactory appearance. No focal lytic or destructive changes. No acute fracture or dislocation. JOB #: [id number] Final Signed by: Jovany Thompson MD Signed (Electronic Signature): 06/20/2022 10:15 am Patient Care team information Care Team PersonnelName: Shae Cobos Position: No Access Member Role: Primary Care Physician Address: Address: [address] [address]- [place]
== END ==
PROVIDERS: PCP Family Medicine; Visit Provider Nurse Practitioner Family
DX: R05.3 Chronic cough (principal)
CPT/HCPCS: 71046

== ENCOUNTER 2022-08-16 11:38 | Outpatient (CLI) | payer MEDICARE, SELFPAY ==
--- NOTE | 2022-08-16 11:30 | RT.EKG_ITS ---
APPROVED REPORT Exam: Resting ECG Reason for Exam: Cold Symptoms Patient Location: O HR:78 bpm ECG Measurements Heart Rate 78 AXIS [place] 141 P 74 QRSd 105 QRS 45 QT 371 T 58 QTc 423 Conclusion Sinus rhythm...normal P axis, V-rate 50- 99 Normal Electrocardiogram
== END 2022-08-16 11:39 | disposition home or self-care (01) ==
PROVIDERS: PCP Family Medicine; Visit Provider Nurse Practitioner Family
DX: R06.02 Shortness of breath (principal); J40 Bronchitis, not specified as acute or chronic
CPT/HCPCS: 93010

== ENCOUNTER 2022-09-30 08:54 | Outpatient (CLI) | payer MEDICARE, SELFPAY ==
--- NOTE | 2022-09-30 08:45 | RT.EKG_ITS ---
APPROVED REPORT Exam: Resting ECG Reason for Exam: GO Patient Location: O HR:86 bpm ECG Measurements Heart Rate 86 AXIS IN 138 P 63 QRSd 102 QRS 21 QT 359 T 50 QTc 430 Conclusion Sinus rhythm...normal P axis, V-rate 50- 99 Normal Electrocardiogram
== END 2022-09-30 08:55 | disposition home or self-care (01) ==
LOC: DI.CARD 08:56
PROVIDERS: PCP Family Medicine; Visit Provider Internal Medicine Cardiovascular Disease
DX: R06.09 Other forms of dyspnea (principal)
CPT/HCPCS: 93010

== ENCOUNTER → 2022-09-30 12:54 | Outpatient (BNVA) | payer MEDICARE, SELFPAY | PROVIDERS: PCP Family Medicine; Referring Provider Family Medicine; Visit Provider Internal Medicine Cardiovascular Disease | DX: R06.09 Other forms of dyspnea (principal); R07.9 Chest pain, unspecified | CPT/HCPCS: 93005; 99203; 99214 ==

== ENCOUNTER → 2023-02-04 08:24 | Outpatient (BNVA) | payer MEDICARE, SELFPAY | PROVIDERS: PCP Family Medicine; Referring Provider Neurological Surgery; Visit Provider Psychiatry & Neurology Neurology | DX: M54.31 Sciatica, right side (principal); I10 Essential (primary) hypertension; E11.9 Type 2 diabetes mellitus without complications | CPT/HCPCS: 95885; 95908; 99214 ==

== ENCOUNTER 2023-02-06 14:09 | Outpatient (REF) | payer MEDICARE, SELFPAY ==
[2023-02-06 16:03] LABS: ESR 16 mm/hr (0-30)
[2023-02-06 16:25] LABS: Hemoglobin A1C 5.8 % (<5.7)
[2023-02-06 16:26] LABS: Anion Gap 7.9 mmol/L (3-11); BUN 26 mg/dL (7-18); C-Reactive Protein 0.23 mg/dL (0.0-0.3); CO2 26.1 mmol/L (21.0-32.0); CREATININE 0.9 mg/dL (0.55-1.02); Calcium 9.6 mg/dL (8.5-10.1); Chloride 96 mmol/L (98-107); Estimated GFR 65.84 (mL/min/1.73m2); Glucose 122 mg/dL (74-106); Potassium 4.6 mmol/L (3.5-5.1); Sodium 130 mmol/L (136-145)
[2023-02-09 11:32] LABS: Lyme Ab w Rflx to Lyme Confirm Negative (Negative)
== END 2023-02-06 14:10 | disposition home or self-care (01) ==
LOC: NCHCN 14:09
PROVIDERS: PCP Family Medicine; Visit Provider Family Medicine
DX: R73.03 Prediabetes (principal); M79.10 Myalgia, unspecified site; M19.90 Unspecified osteoarthritis, unspecified site; W57.XXXA Bitten or stung by nonvenomous insect and other nonvenomous arthropods, initial encounter
CPT/HCPCS: 80048; 85652; 83036; 86140; 86618

== ENCOUNTER 2023-03-02 15:37 | Outpatient (REF) | payer MEDICARE, SELFPAY ==
[2023-03-02 19:13] LABS: Anion Gap 6.6 mmol/L (3-11); BUN 22 mg/dL (7-18); CO2 28.4 mmol/L (21.0-32.0); CREATININE 1.1 mg/dL (0.55-1.02); Calcium 9.5 mg/dL (8.5-10.1); Chloride 105 mmol/L (98-107); Estimated GFR 51.75 (mL/min/1.73m2); Glucose 149 mg/dL (74-106); Potassium 4.1 mmol/L (3.5-5.1); Sodium 140 mmol/L (136-145)
== END 2023-03-02 15:38 | disposition home or self-care (01) ==
LOC: NCHCN 15:37
PROVIDERS: PCP Family Medicine; Visit Provider Family Medicine
DX: Z00.00 Encounter for general adult medical examination without abnormal findings (principal); I10 Essential (primary) hypertension; N28.9 Disorder of kidney and ureter, unspecified
CPT/HCPCS: 80048

== ENCOUNTER 2023-04-03 11:49 | Outpatient (REF) | payer MEDICARE, SELFPAY ==
[2023-04-03 18:55] LABS: Anion Gap 8.8 mmol/L (3-11); BUN 28 mg/dL (7-18); CO2 25.2 mmol/L (21.0-32.0); CREATININE 0.9 mg/dL (0.55-1.02); Calcium 9.2 mg/dL (8.5-10.1); Chloride 103 mmol/L (98-107); Estimated GFR 65.84 (mL/min/1.73m2); Glucose 146 mg/dL (74-106); Potassium 4.1 mmol/L (3.5-5.1); Sodium 137 mmol/L (136-145)
== END 2023-04-03 11:50 | disposition home or self-care (01) ==
LOC: NCHCN 11:49
PROVIDERS: PCP Family Medicine; Visit Provider Family Medicine
DX: N28.9 Disorder of kidney and ureter, unspecified (principal); I10 Essential (primary) hypertension
CPT/HCPCS: 80048

== ENCOUNTER 2023-06-17 11:56 | Outpatient (REF) | payer MEDICARE, SELFPAY ==
[2023-06-17 13:38] LABS: Bilirubin Negative (Negative); Blood Negative (Negative); Clarity Clear (Clear); Glucose Negative (Negative); Ketones Negative (Negative); Leukocyte Esterase Negative (Negative); Nitrite Negative (Negative); Specific Gravity 1.015 (1.005-1.025); Urobilinogen 0.2 mg/dL (Up to 0.2)
== END 2023-06-17 11:57 | disposition home or self-care (01) ==
LOC: LBN 11:56
PROVIDERS: PCP Family Medicine; Visit Provider Physician Assistant
DX: R39.9 Unspecified symptoms and signs involving the genitourinary system (principal)
CPT/HCPCS: 81003

== ENCOUNTER 2023-07-21 17:37 | Outpatient (REF) | payer MEDICARE, SELFPAY ==
[2023-07-21 16:29] LABS: HCT 44.3 % (36.0-46.0); HGB 14.1 g/dL (11.2-15.7); MCH 28.2 pg (27.0-33.0); MCHC 31.8 % (32.0-36.0); MCV 89 fL (80-95); MPV 10.1 fL (8.0-11.0); Platelet Count 272 10^3/uL (130-400); RDW 13.3 % (11.7-14.6); RDW-SD 43.4 fL; WBC 6.55 10^3/uL (4.4-10.8)
[2023-07-21 16:48] LABS: Anion Gap 8.1 mmol/L (3-11); BUN 25 mg/dL (7-18); C-Reactive Protein 0.25 mg/dL (0.0-0.3); CO2 27.9 mmol/L (21.0-32.0); CREATININE 0.9 mg/dL (0.55-1.02); Calcium 9.3 mg/dL (8.5-10.1); Chloride 103 mmol/L (98-107); Estimated GFR 65.84 (mL/min/1.73m2); Glucose 107 mg/dL (74-106); Potassium 4.7 mmol/L (3.5-5.1); Sodium 139 mmol/L (136-145); TSH 1.49 uIU/mL (0.36-3.74)
[2023-07-21 16:49] LABS: ESR 9 mm/hr (0-30)
[2023-07-21 16:57] LABS: Hemoglobin A1C 5.9 % (<5.7)
== END 2023-07-21 17:38 | disposition home or self-care (01) ==
LOC: NCHCN 17:37
PROVIDERS: Physician Assistant; PCP Family Medicine; Visit Provider Family Medicine
DX: R39.9 Unspecified symptoms and signs involving the genitourinary system (principal); R53.83 Other fatigue
CPT/HCPCS: 80048; 85027; 85652; 83036; 84443; 86140

== ENCOUNTER 2023-09-17 12:45 | Outpatient (REF) | payer MEDICARE, SELFPAY ==
[2023-09-17 15:58] LABS: Anion Gap 8.7 mmol/L (3-11); BUN 22 mg/dL (7-18); CO2 27.3 mmol/L (21.0-32.0); CREATININE 0.9 mg/dL (0.55-1.02); Calcium 9.8 mg/dL (8.5-10.1); Calculated LDL 111 mg/dL (<100); Chloride 104 mmol/L (98-107); Cholesterol 204 mg/dL (<200); Estimated GFR 65.84 (mL/min/1.73m2); Glucose 118 mg/dL (74-106); HDL Cholesterol 62 mg/dL (40-60); Potassium 4.8 mmol/L (3.5-5.1); Sodium 140 mmol/L (136-145); Triglyceride 157 mg/dL (<150)
== END 2023-09-17 12:46 | disposition home or self-care (01) ==
LOC: NCHCN 12:45
PROVIDERS: PCP Family Medicine; Visit Provider Family Medicine
DX: Z00.00 Encounter for general adult medical examination without abnormal findings (principal)
CPT/HCPCS: 80048; 80061; 83036

== ENCOUNTER → 2023-12-30 14:55 | Outpatient (BNVA) | payer MEDICARE, SELFPAY | PROVIDERS: PCP Family Medicine; Referring Provider Family Medicine; Visit Provider Student in an Organized Health Care Education/Training Program | DX: M75.101 Unspecified rotator cuff tear or rupture of right shoulder, not specified as traumatic (principal); M75.102 Unspecified rotator cuff tear or rupture of left shoulder, not specified as traumatic; M12.811 Other specific arthropathies, not elsewhere classified, right shoulder; M12.812 Other specific arthropathies, not elsewhere classified, left shoulder; M75.51 Bursitis of right shoulder; M79.18 Myalgia, other site; Z96.611 Presence of right artificial shoulder joint | CPT/HCPCS: 99213 ==

== ENCOUNTER 2024-07-15 13:43 | Outpatient (REF) | payer MEDICARE, SELFPAY ==
[2024-07-15 16:56] LABS: Anion Gap 10.3 mmol/L (3-11); BUN 21 mg/dL (7-18); CO2 24.7 mmol/L (21.0-32.0); CREATININE 0.9 mg/dL (0.55-1.02); Calcium 9.5 mg/dL (8.5-10.1); Chloride 102 mmol/L (98-107); Estimated GFR 65.44 (mL/min/1.73m2); Glucose 99 mg/dL (74-106); Potassium 4.4 mmol/L (3.5-5.1); Sodium 137 mmol/L (136-145); TSH (W/Ref FT4) 1.45 uIU/mL (0.36-3.74); Vitamin B12 379 pg/mL (193-986)
[2024-07-18 13:33] LABS: Albumin 61.1 % (55.8-66.1); Albumin g/dL 4.1 g/dL (3.6-5.2); Total Protein 6.7 g/dL (6.3-8.2)
== END 2024-07-15 13:44 | disposition home or self-care (01) ==
LOC: NCHCN 13:43
PROVIDERS: PCP Family Medicine; Visit Provider Family Medicine
DX: M54.50 Low back pain, unspecified (principal)
CPT/HCPCS: 80048; 82607; 83036; 84165; 84443

== ENCOUNTER 2024-07-28 01:11 | Outpatient (CLI) | payer MEDICARE, SELFPAY ==
--- NOTE | 2024-07-28 | DI.CT_ITS ---
Exam(s) CT CHEST HIGH RESOLUTION EXAM: CT CHEST HIGH RESOLUTION CLINICAL HISTORY: PULMONARY FIBROSIS J84.10. TECHNIQUE: Imaging protocol: Axial computed tomography images were obtained and coronal and sagittal reformatted images were created and reviewed. Lung Computer Aided Detection (CAD) was utilized. COMPARISON: CT CT CHEST WO from 11/25/2021 FINDINGS: Tracheobronchial tree: Patent where visualized. No bronchiectasis is present. Pulmonary parenchyma: Mild centrilobular emphysematous changes are present. There is a calcified gra nuloma in the right upper lobe. There are stable peripheral pulmonary nodules. No new nodules are s een. No focal consolidating infiltrates are present. No pulmonary fibrotic changes are present. No architectural distortion. Mediastinum and Phuong: No dominant adenopathy or fluid collection. The esophagus is unremarkable. Thyroid gland: Unremarkable. Pleura: No effusion or pneumothorax. Heart: The heart is not dilated. Coronary artery calcification is present. No pericardial effusion. Aorta: Thoracic aorta non-dilated. Atherosclerotic calcification is present. Upper abdomen: Calcified granuloma are seen in the liver and spleen. There are stable adrenal nodul es likely reflecting adenomas. Lymph nodes: Within normal limits. Soft tissues: Unremarkable. Bones:Patient has bilateral shoulder replacements. IMPRESSION: Mild centrilobular emphysematous changes. No evidence of pulmonary fibrosis. RADIATION DOSE DELIVERED: 578.13mGy.cm Total DLP 578.13mGy.cm Total DLP DATA REPOSITORY: All CT scans at this facility are submitted to the National Radiology Data Registry (NRDR) Dose Index Registry (DIR) with the [employer] (ACR). RADIATION OPTIMIZATION: All CT scans at this facility use at least one of these dose optimization te chniques: automated exposure control; mA and/or kV adjustment per patient size (includes targeted exa ms where dose is matched to clinical indication); or iterative reconstruction.
== END 2024-07-28 01:31 ==
LOC: DI 01:11
PROVIDERS: PCP Family Medicine; Visit Provider Family Medicine
DX: J84.10 Pulmonary fibrosis, unspecified (principal)
CPT/HCPCS: 71250

== ENCOUNTER 2024-12-15 10:43 | Outpatient (REF) | payer MEDICARE, SELFPAY ==
[2024-12-15 15:38] LABS: HCT 42.2 % (36.0-46.0); MCH 29.3 pg (27.0-33.0); MCHC 33.2 % (32.0-36.0); MCV 88 fL (80-95); MPV 10.7 fL (8.0-11.0); Platelet Count 240 10^3/uL (130-400); RBC 4.78 10^6/uL (3.93-5.22); RDW 13.9 % (11.7-14.6); RDW-SD 45.3 fL
[2024-12-15 15:47] LABS: ESR 10 mm/hr (0-30)
[2024-12-15 15:55] LABS: Hemoglobin A1C 5.9 % (<5.7)
[2024-12-15 16:04] LABS: ALT 32 U/L (14-59); AST 27 U/L (15-37); Alkaline Phosphatase 124 U/L (46-116); Anion Gap 9.8 mmol/L (3-11); BUN 24 mg/dL (7-18); Bilirubin, Total 0.5 mg/dL (0.2-1.0); CO2 25.2 mmol/L (21.0-32.0); CREATININE 0.8 mg/dL (0.55-1.02); Calcium 9.4 mg/dL (8.5-10.1); Chloride 104 mmol/L (98-107); Glucose 90 mg/dL (74-106); LDH 220 U/L (81-234); Potassium 4.3 mmol/L (3.5-5.1); Sodium 139 mmol/L (136-145); TSH 1.63 uIU/mL (0.36-3.74); Total Protein 6.8 g/dL (6.4-8.2)
[2024-12-15 16:06] LABS: C-Reactive Protein < 0.50 mg/dL (<or=0.5)
== END 2024-12-15 10:44 | disposition home or self-care (01) ==
LOC: NCHCN 10:43
PROVIDERS: PCP Family Medicine; Visit Provider Family Medicine
DX: R73.03 Prediabetes (principal); I10 Essential (primary) hypertension
CPT/HCPCS: 80053; 85027; 85652; 83036; 83615; 84443; 86140

== ENCOUNTER 2025-06-16 11:34 | Outpatient (REF) | payer MEDICARE, SELFPAY ==
[2025-06-16 16:20] LABS: ALT 38 U/L (14-59); AST 31 U/L (15-37); Albumin 3.9 g/dL (3.4-5.0); Alkaline Phosphatase 127 U/L (46-116); Anion Gap 7.5 mmol/L (3-11); BUN 19 mg/dL (7-18); Bilirubin, Total 0.5 mg/dL (0.2-1.0); CO2 27.5 mmol/L (21.0-32.0); Calcium 9.2 mg/dL (8.5-10.1); Chloride 104 mmol/L (98-107); Glucose 152 mg/dL (74-106); Potassium 4.9 mmol/L (3.5-5.1); Sodium 139 mmol/L (136-145); Total Protein 6.7 g/dL (6.4-8.2)
== END 2025-06-16 11:35 | disposition home or self-care (01) ==
LOC: NCHCN 11:34
PROVIDERS: PCP Family Medicine; Visit Provider Family Medicine
DX: I10 Essential (primary) hypertension (principal)
CPT/HCPCS: 80053

== ENCOUNTER 2025-08-03 15:04 | Observation (INO) | payer MEDICARE, SELFPAY ==
[2025-08-03] VITALS (9 sets, daily range): BP systolic 144–206; BP diastolic 59–106; PULSE 76–89; RESP 14–26; TEMP 35.9–36.4; O2SAT 95–99
--- NOTE | 2025-08-03 15:00 | RT.EKG_ITS ---
APPROVED REPORT Exam: Resting ECG Reason for Exam: pain, radiating rafael back Patient Location: E HR:81 bpm ECG Measurements Heart Rate 81 AXIS TX 147 P 59 QRSd 101 QRS 26 QT 379 T 55 QTc 439 Conclusion Sinus rhythm...normal P axis, V-rate 60- 99
--- NOTE | 2025-08-03 15:25 | DI.CT_ITS ---
Exam(s) CT THORAX ABD/PEL CTA EXAM: CT THORAX ABD/PEL CTA CLINICAL HISTORY: aortic pain vs biliary/pancreatitis pathology. TECHNIQUE: Imaging Protocol: Axial computed tomography images with coronal and sagittal reformatted images were created and reviewed CONTRAST MATERIAL: Intravenous: Omnipaque 350 Contrast volume:100 ml Oral: None COMPARISON: CT CT CHEST HIGH RESOLUTION from 07/28/2024 FINDINGS: CHEST: AORTA: The diameter of the ascending thoracic aorta is within normal limits. There is no evidence of aneurysm and there is no evidence of aortic dissection. Also no evidence of abdominal aortic aneurysm nor dissection and the aortoiliac vascular segments as well as common femoral arteries are unremarkable. There is no critical stenosis at the origin of the celiac, SMA, and BRETT arteries nor of the main renal arteries although there is some calcified plaque at the origin the left renal artery evident. Aortic bifurcation is patent. No aneurysms nor dissection flaps within the iliac vessels. LUNGS: No infiltrates nor pleural effusions nor significant lung nodules. No significant focal findings in the trachea and mainstem bronchi.. MEDIASTINUM: There is no hilar nor mediastinal adenopathy. CARDIAC: Heart size is normal. There is no pericardial effusion. ABDOMEN: There is no ascites. LIVER: There are no focal hepatic lesions nor dilatation of intrahepatic ducts. GALLBLADDER/BILIARY: Gallbladder wall is mildly edematous. No obvious calcified intraluminal gallstones. CBD is not dilated. PANCREAS: No evidence of pancreatic mass nor dilatation of the pancreatic duct. SPLEEN: Spleen is not enlarged. There are no intrasplenic lesions. Splenic and portal veins are patent. ADRENALS: There are no significant adrenal masses. KIDNEYS: There is a benign cyst in the posterior cortex of the right kidney which measures 4.5 x 4.5 cm and does not require further workup. There are no solid renal masses nor calculi and no hydronephrosis nor hydroureter nor obvious abnormality in the urinary bladder.. ABDOMINAL AORTA: The abdominal aorta is not enlarged. LYMPH NODES: There is no retroperitoneal nor para-aortic adenopathy. No obvious mesenteric masses. ABDOMINAL WALL: No evidence of significant anterior abdominal wall hernia. GI: There is no evidence of bowel obstruction, free air, nor abscess. PELVIS: LYMPH NODES: There is no intrapelvic nor inguinal adenopathy. GI: The appendix is surgically absent.No evidence of sigmoid diverticulitis.No colitis pattern. URINARY BLADDER: No calculi nor masses evident REPRODUCTIVE: Uterus is surgically absent. No abnormal adnexal masses nor free fluid in the pelvis. OSSEOUS: No fractures and no significant osseous lesions evident. Fusion hardware in the lumbar spine is noted. IMPRESSION: 1. No acute intrathoracic findings. No evidence of aortic dissection nor pericardial effusion, as per request. 2. No evidence of abdominal aortic aneurysm nor dissection. 3. The main finding here is an element of gallbladder wall edema and gallbladder distension consistent with cholecystitis. There are no obvious gallstones noted on CT scan. Follow-up ultrasound recommended. The CBD is not dilated. 4. No evidence of pancreatitis nor dilatation pancreatic duct. Prior hysterectomy and appendectomy. No bowel obstruction. Also evidence of previous lumbar spine fusion surgery and bilateral shoulder prostheses are noted. Report called by myself to ER provider 08/03/2025 at 4:35 p.m. RADIATION DOSE DELIVERED: 1,947.7mGy.cm Total DLP DATA REPOSITORY: All CT scans at this facility are submitted to the National Radiology Data Registry (NRDR) Dose Index Registry (DIR) with the [employer] (ACR). RADIATION OPTIMIZATION: All CT scans at this facility use at least one of these dose optimization techniques: automated exposure control; mA and/or kV adjustment per patient size (includes targeted exams where dose is matched to clinical indication); or iterative reconstruction.
[2025-08-03 15:32] LABS: Abs Immature Grans 0.01 10^3/uL (0.0-0.06); HCT 40.5 % (36.0-46.0); HGB 13.2 g/dL (11.2-15.7); Immature Grans % 0.1 %; MCH 28.5 pg (27.0-33.0); MCHC 32.6 % (32.0-36.0); MCV 88 fL (80-95); MPV 9.5 fL (8.0-11.0); Platelet Count 243 10^3/uL (130-400); RBC 4.63 10^6/uL (3.93-5.22); RDW 13.8 % (11.7-14.6); RDW-SD 44.3 fL; WBC 7.44 10^3/uL (4.4-10.8)
[2025-08-03] MEDS: Normal Saline 1,000 ML 1000 ML IV (15:35)
[2025-08-03] MEDS: ACETAMINOPHEN 1,000 MG/100 ML BAG 400 MG IVPB ×2 (15:35→21:21)
--- NOTE | 2025-08-03 15:47 | W.ED.GENAD ---
Discharge Plan Disposition Patient Disposition: Admit to [facility] Condition: Stable Discharge Details Clinical Impression: Acute cholecystitis Primary Care Provider: Shae Cobos V ED Provider: Ambrose Horan Home Meds and New Rx's Prescriptions: No Action tizanidine 4 mg capsule 4 mg PO Q8H PRN losartan-hydrochlorothiazide 50-12.5 mg tablet 2 tab PO DAILY pyridoxine (vitamin B6) 10 mg tablet 10 mg PO DAILY omeprazole 20 MG capsule,delayed release(DR/EC) 20 mg PO DAILY ibuprofen 600 mg tablet 600 mg PO Q6H PRN cholecalciferol (vitamin D3) 25 mcg (1,000 unit) capsule 25 mcg PO DAILY Prevagen PO DAILY melatonin 10 mg capsule 10 mg PO HS PRN albuterol sulfate 90 mcg/actuation HFA aerosol inhaler 2 puff inhalation Q4H PRN PRN magnesium oxide 400 mg magnesium capsule 800 mg PO QHS turmeric root extract 500 mg capsule 500 mg PO DAILY acetaminophen [Tylenol Extra Strength] 500 MG tablet 1,000 mg PO PRN PRN HPI General Date/Time Provider Initiated Documentation: 08/03/25 15:07. HPI Narrative: 79 year-old female presents to ED today by POV/ambulating with a chief complaint of epigastric abdominal pain, severe, radiating to back with onset after having breakfast around 1000. Quality described as severe pain, no radiation to fever, vomiting, chest pain, endorses chronic shortness of breath, endorses diarrhea for the last 3 days and nausea. Severity is described as severe. Palliating factors include nothing attempted. Provoking factors include nothing specific. Events leading up to the incident/Associated Symptoms: Patient has passed gas since this pain started. Patient not anticoagulated. Related Data Home Medications ?Medication ?Instructions ?Recorded ?Confirmed omeprazole 20 mg capsule,delayed 20 mg PO DAILY 03/16/15 12/30/23 release acetaminophen 500 mg tablet 1,000 mg PO PRN PRN 09/11/16 08/03/25 (Tylenol Extra Strength) Prevagen PO DAILY 10/16/21 12/30/23 albuterol sulfate 90 mcg/actuation 2 puff inhalation Q4H PRN PRN 10/16/21 12/30/23 aerosol inhaler cholecalciferol (vitamin D3) 25 25 mcg PO DAILY 10/16/21 12/30/23 mcg (1,000 unit) capsule ibuprofen 600 mg tablet 600 mg PO Q6H PRN 10/16/21 12/30/23 melatonin 10 mg capsule 10 mg PO HS PRN 10/16/21 12/30/23 magnesium oxide 800 mg PO QHS 09/25/22 12/30/23 turmeric root extract 500 mg 500 mg PO DAILY 09/29/22 12/30/23 capsule tizanidine 4 mg capsule 4 mg PO Q8H PRN 02/04/23 12/30/23 losartan 50 mg-hydrochlorothiazide 2 tab PO DAILY 12/30/23 12/30/23 12.5 mg tablet pyridoxine (vitamin B6) 10 mg 10 mg PO DAILY 12/30/23 12/30/23 tablet Allergies Allergy/AdvReac Type Severity Reaction Status Date / Time cephalexin (From Keflex) Allergy Other (See Verified 12/30/23 15:08 Comment) diclofenac Allergy Other (See Verified 12/30/23 15:08 Comment) diltiazem (From Dilacor XR) Allergy Other (See Verified 12/30/23 15:08 Comment) gabapentin Allergy Other (See Verified 12/30/23 15:08 Comment) gadoterate meglumine (From Allergy Other (See Verified 12/30/23 15:08 Dotarem) Comment) misoprostol Allergy Unknown Verified 12/30/23 15:08 prednisone Allergy Other (See Verified 12/30/23 15:08 Comment) hydromorphone AdvReac Severe Nausea Verified 12/30/23 15:08 propoxyphene HCl (From AdvReac Severe nausea/vomi Verified 12/30/23 15:08 Darvon) ting tramadol AdvReac Intermediate Nausea Verified 12/30/23 15:08 General Stated Complaint: Epigastric Pain/Over45 DMITRY: 3 Review of Systems All systems reviewed & are unremarkable except as noted in HPI and below Exam Narrative Exam Narrative: GENERAL APPEARANCE: Well-nourished, toxic, awake and alert, atraumatic, moderate acute distress. SKIN: Warm, pink, dry, intact, without rashes/lesions/ulcerations. HEAD: Normocephalic, atraumatic, normal hair distribution for gender/age. EYES: Normal conjunctiva, no exudates on lids/lashes. ENT: Nares patent, no circumoral cyanosis, no facial swelling NECK: Supple, trachea midline, painless cervical ROM. LUNGS/CHEST: Lungs CTA bilaterally-no rhonchi/rales/wheeze diffusely, non-labored respirations, normal A/P diameter, symmetrical expansion, no chest wall deformity HEART (CV/PV): Regular rate and rhythm without murmur, no peripheral edema, no JVD. ABDOMEN: Normal active bowel signs, soft, non-distended, + guarding, severe epigastric tenderness with positive Borrego sign, no CVA tenderness to percussion bilaterally. MSK: Normal ROM, no swelling/deformity to bilateral UEs or LEs, moving all extremities without weakness, no cyanosis, spine midline without tenderness, normal curvature. NEURO: Mental Status AAOx4 - alert to person, place, time, events No facial droop, no forehead involvement. Motor: No focal weakness Sensory: sensation intact to light touch globally. Gait NT PSYCH: euthymic, cooperative, pleasant, appropriate speech Course Vital Signs Vital signs: Vital Signs Temperature 35.9 C L 08/03/25 15:07 Pulse 88 08/03/25 15:07 Respiratory Rate 22 08/03/25 15:07 Blood Pressure 144/106 H 08/03/25 15:07 Pulse Oximetry 97 08/03/25 15:07 Temperature 35.9 C L 08/03/25 15:07 Temperature Source Temporal Artery Scan 08/03/25 15:07 Pulse 76 08/03/25 15:31 Pulse 76 08/03/25 15:31 Respiratory Rate 24 08/03/25 15:16 Blood Pressure 189/59 H 08/03/25 15:31 Blood Pressure Mean 110 08/03/25 15:31 Blood Pressure Position Supine 08/03/25 15:07 Pulse Oximetry 95 08/03/25 15:31 Oxygen Delivery Method Room Air 08/03/25 15:07 Oxygen Flow Rate 0 08/03/25 15:07 Pain Level 10 08/03/25 15:07 Lab/Test Results Lab/Test Results: Laboratory Tests Range/Units 08/03/25 15:22 WBC (4.4-10.8) 10^3/uL 7.44 RBC (3.93-5.22) 10^6/uL 4.63 Hgb (11.2-15.7) g/dL 13.2 Hct (36.0-46.0) % 40.5 MCV (80-95) fL 88 MCH (27.0-33.0) pg 28.5 MCHC (32.0-36.0) % 32.6 RDW (11.7-14.6) % 13.8 Plt Count (130-400) 10^3/uL 243 MPV (8.0-11.0) fL 9.5 Immature Gran % % 0.1 Neutrophils % % 74.7 Lymphocytes % % 16.3 Monocytes % % 4.7 Eosinophils % % 3.9 Basophils % % 0.3 Nucleated RBC % (0.0-0.3) % 0.0 Absolute Neutrophils (1.2-6.7) 10^3/uL 5.56 Absolute Lymphocytes (1.2-3.4) 10^3/uL 1.21 Absolute Monocytes (0.1-0.8) 10^3/uL 0.35 Absolute Eosinophils (0.0-0.7) 10^3/uL 0.29 Absolute Basophils (0.0-0.2) 10^3/uL 0.02 VBG Lactate (<or=2.0) mmol/L 2.2 H* Medical Decision Making This dictation utilizes [id number] dictation software and may contain unedited grammatical errors. 79 year-old female presents to ED today by POV/ambulating with a chief complaint of epigastric abdominal pain, severe, radiating to back with onset after having breakfast around 1000. Quality described as severe pain, no radiation to fever, vomiting, chest pain, endorses chronic shortness of breath, endorses diarrhea for the last 3 days and nausea. Severity is described as severe. Palliating factors include nothing attempted. Provoking factors include nothing specific. Events leading up to the incident/Associated Symptoms: Patient has passed gas since this pain started. Patients' medical history: T2DM, hypertension, GERD, obesity, status post hysterectomy and appendectomy. Family and social history: noncontributory, quit smoking 20 years ago. Pertinent exam findings / vital signs include severe epigastric tenderness, no CVA tenderness percussion bilaterally, normal active bowel sounds, benign cardiopulmonary exam, afebrile. Differential / pathologies of concern include biliary colic, pancreatitis, SBO, aortic pathology. Diagnostic studies of: -CBC, CMP, lactate, lipase, magnesium, troponin, UA, EKG, CTA thorax/ABD/pelvis with contrast. - CBC shows no leukocytosis, no left shift - Lactate mildly elevated at 2.2, possible in the setting of dehydration - CMP is unremarkable - Serial troponins negative - Magnesium within normal limits - Lipase within normal limits - UA benign - CTA shows no evidence of aortic pathology, does show some gallbladder wall edema and questions cholecystitis recommends ultrasound - EKG shows sinus rhythm at 81 bpm with P waves followed by narrow complex QRS with normal axis, good R wave progression, normal intervals, no ST changes or T wave abnormalities, consistent with priors Interventions of: -1 g IV Tylenol, 4.5 g IV Zosyn, consulted with surgeon on-call Dr. Wen blood, she would recommend overnight observation prior to possible lap boy after an ultrasound can be performed in the morning, reassured that there is no elevated white blood count and no gallstones seen on CT. -Admitted to hospitalist service by Dr. Landa at [address] Blevins- recommends US ABD tomorrow qAM. ED Course/Assessment/Plan: 79-year-old female presents with severe epigastric abdominal pain rating to her back, there is some gallbladder wall edema CT questioning cholecystitis, her labs are reassuring for no signs of obstructive pathology of the biliary tract with normal LFTs and bilirubin, she has no elevated white blood cells and cardiac workup is negative, patient should be admitted to the hospital for definitive ultrasound tomorrow morning prior to decision on laparoscopic cholecystectomy. Disposition of Acute Cholecystitis. Patient verbalized understanding of the plan and return to ED criteria and engaged in shared decision making. Medical Records Medical records reviewed: Yes I reviewed the patient's medical records. Imaging Data Radiologic Study: Attestation: I personally reviewed and interpreted this imaging study as follows: Imaging: CT Scan Radiologist's impression: EXAM: CT THORAX ABD/PEL CTA CLINICAL HISTORY: aortic pain vs biliary/pancreatitis pathology. TECHNIQUE: Imaging Protocol: Axial computed tomography images with coronal and sagittal reformatted images were created and reviewed CONTRAST MATERIAL: Intravenous: Omnipaque 350 Contrast volume:100 ml Oral: None COMPARISON: CT CT CHEST HIGH RESOLUTION from 07/28/2024 FINDINGS: CHEST: AORTA: The diameter of the ascending thoracic aorta is within normal limits. There is no evidence of aneurysm and there is no evidence of aortic dissection. Also no evidence of abdominal aortic aneurysm nor dissection and the aortoiliac vascular segments as well as common femoral arteries are unremarkable. There is no critical stenosis at the origin of the celiac, SMA, and BRETT arteries nor of the main renal arteries although there is some calcified plaque at the origin the left renal artery evident. Aortic bifurcation is patent. No aneurysms nor dissection flaps within the iliac vessels. LUNGS: No infiltrates nor pleural effusions nor significant lung nodules. No significant focal findings in the trachea and mainstem bronchi.. MEDIASTINUM: There is no hilar nor mediastinal adenopathy. CARDIAC: Heart size is normal. There is no pericardial effusion. ABDOMEN: There is no ascites. LIVER: There are no focal hepatic lesions nor dilatation of intrahepatic ducts. GALLBLADDER/BILIARY: Gallbladder wall is mildly edematous. No obvious calcified intraluminal gallstones. CBD is not dilated. PANCREAS: No evidence of pancreatic mass nor dilatation of the pancreatic duct. SPLEEN: Spleen is not enlarged. There are no intrasplenic lesions. Splenic and portal veins are patent. ADRENALS: There are no significant adrenal masses. KIDNEYS: There is a benign cyst in the posterior cortex of the right kidney which measures 4.5 x 4.5 cm and does not require further workup. There are no solid renal masses nor calculi and no hydronephrosis nor hydroureter nor obvious abnormality in the urinary bladder.. ABDOMINAL AORTA: The abdominal aorta is not enlarged. LYMPH NODES: There is no retroperitoneal nor para-aortic adenopathy. No obvious mesenteric masses. ABDOMINAL WALL: No evidence of significant anterior abdominal wall hernia. GI: There is no evidence of bowel obstruction, free air, nor abscess. PELVIS: LYMPH NODES: There is no intrapelvic nor inguinal adenopathy. GI: The appendix is surgically absent.No evidence of sigmoid diverticulitis.No colitis pattern. URINARY BLADDER: No calculi nor masses evident REPRODUCTIVE: Uterus is surgically absent. No abnormal adnexal masses nor free fluid in the pelvis. OSSEOUS: No fractures and no significant osseous lesions evident. Fusion hardware in the lumbar spine is noted. IMPRESSION: 1. No acute intrathoracic findings. No evidence of aortic dissection nor pericardial effusion, as per request. 2. No evidence of abdominal aortic aneurysm nor dissection. 3. The main finding here is an element of gallbladder wall edema and gallbladder distension consistent with cholecystitis. There are no obvious gallstones noted on CT scan. Follow-up ultrasound recommended. The CBD is not dilated. 4. No evidence of pancreatitis nor dilatation pancreatic duct. Prior hysterectomy and appendectomy. No bowel obstruction. Also evidence of previous lumbar spine fusion surgery and bilateral shoulder prostheses are noted. Report called by myself to ER provider 08/03/2025 at 4:35 p.m. Lab Data Lab results reviewed: Yes I reviewed the patient's lab results. Labs: Laboratory Tests Range/Units 08/03/25 08/03/25 08/03/25 15:22 16:20 16:35 WBC (4.4-10.8) 10^3/uL 7.44 RBC (3.93-5.22) 10^6/uL 4.63 Hgb (11.2-15.7) g/dL 13.2 Hct (36.0-46.0) % 40.5 MCV (80-95) fL 88 MCH (27.0-33.0) pg 28.5 MCHC (32.0-36.0) % 32.6 RDW (11.7-14.6) % 13.8 Plt Count (130-400) 10^3/uL 243 MPV (8.0-11.0) fL 9.5 Immature Gran % % 0.1 Neutrophils % % 74.7 Lymphocytes % % 16.3 Monocytes % % 4.7 Eosinophils % % 3.9 Basophils % % 0.3 Nucleated RBC % (0.0-0.3) % 0.0 Absolute Neutrophils (1.2-6.7) 10^3/uL 5.56 Absolute Lymphocytes (1.2-3.4) 10^3/uL 1.21 Absolute Monocytes (0.1-0.8) 10^3/uL 0.35 Absolute Eosinophils (0.0-0.7) 10^3/uL 0.29 Absolute Basophils (0.0-0.2) 10^3/uL 0.02 VBG Lactate (<or=2.0) mmol/L 2.2 H* Sodium (136-145) mmol/L 140 Potassium (3.5-5.1) mmol/L 3.9 Chloride (98-107) mmol/L 105 Carbon Dioxide (20.0-31.0) mmol/L 26.4 Anion Gap (3-11) mmol/L 8.6 BUN (9-23) mg/dL 20 Creatinine (0.55-1.02) mg/dL 0.81 Est GFR (CKD-EPI 2020) (mL/min/1.73m2) 68.10 Glucose (74-106) mg/dL 158 H Calcium (8.3-10.6) mg/dL 9.3 Magnesium (1.6-2.6) mg/dL 2.1 Total Bilirubin (0.2-1.2) mg/dL 0.5 AST (<34) U/L 36 H ALT (10-49) U/L 32 Alkaline Phosphatase (46-116) U/L 121 H Troponin I (<35) ng/L 7 8 Total Protein (5.7-8.2) g/dL 7.0 Albumin (3.2-5.0) g/dL 4.3 Lipase (<53) U/L 31 Urine Color (Yellow) Yellow Urine Clarity (Clear) Clear Urine pH (5-8) 7.0 Ur Specific [place] (1.005-1.025) 1.015 Urine Protein (Neg-Trace) mg/dL Negative Urine Ketones (Negative) mg/dL Negative Urine Blood (Negative) Negative Urine Nitrite (Negative) Negative Urine Bilirubin (Negative) Negative Urine Urobilinogen (Up to 0.2) mg/dL 0.2 Ur Leukocyte Esterase (Negative) Negative Urine Glucose (Negative) mg/dL Negative PFSH All Active Problems Epigastric pain (Acute) Acute cholecystitis (Acute) Pain of paraspinal muscle (Acute) Scapulothoracic bursitis of right shoulder (Acute) Retinal artery branch occlusion (Acute) Pain in joint involving lower leg (Acute) Chronic cough (Acute) Anxiety (Chronic) Spinal stenosis (Acute) Shoulder pain, bilateral (Acute) Arthritis (Acute) Intermittent palpitations (Acute) Renal insufficiency (Chronic) Leg cramps (Acute) Low back pain (Acute) Painful total knee replacement, right (Acute) Right knee pain (Acute) Trigger ring finger of left hand (Acute) Rotator cuff tear arthropathy of both shoulders (Acute) Status post replacement of left shoulder joint (Acute 02/27/17) Status post replacement of right shoulder joint (Acute ~03/2018) Trochanteric bursitis, right hip (Acute) Injection: 09/28/2020 Arthritis of right hip (Acute) 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 Paulina Eng Arthroscopy, Shoulder right Family History Mother Cancer Hypertension Stroke Sister Carpal tunnel syndrome Other Diabetes Social History Smoking/Tobacco Use Status: Former Tobacco Use Smoking risk assessment performed?: Yes Alcohol Intake: current Alcohol Intake frequency: holidays/special occasions only Details: OCCASIONAL Drug use: Never Household members: spouse Number of Children: 3 Current gender identity: male
[2025-08-03 15:50] LABS: Lipase 31 U/L (<53); Troponin I 7 ng/L (<35)
[2025-08-03 15:51] LABS: Magnesium 2.1 mg/dL (1.6-2.6)
[2025-08-03 15:52] LABS: ALT 32 U/L (10-49); AST 36 U/L (<34); Albumin 4.3 g/dL (3.2-5.0); Alkaline Phosphatase 121 U/L (46-116); Anion Gap 8.6 mmol/L (3-11); BUN 20 mg/dL (9-23); Bilirubin, Total 0.5 mg/dL (0.2-1.2); CO2 26.4 mmol/L (20.0-31.0); Calcium 9.3 mg/dL (8.3-10.6); Chloride 105 mmol/L (98-107); Glucose 158 mg/dL (74-106); Potassium 3.9 mmol/L (3.5-5.1); Sodium 140 mmol/L (136-145); Total Protein 7.0 g/dL (5.7-8.2)
[2025-08-03] MEDS: Omnipaque 350 MG/ML 100 ML BTL IJ (16:05)
[2025-08-03] MEDS: Normal Saline Flush 10 ML SYR IVP ×3 (16:06→20:00)
[2025-08-03] MEDS: Normal Saline - Diluent 50 ML VIAL IJ (16:06)
[2025-08-03 16:56] LABS: Troponin I 8 ng/L (<35)
[2025-08-03 17:00] LABS: Glucose Negative (Negative)
--- NOTE | 2025-08-03 17:05 | W.SURGCON ---
Date of service: 08/04/25 Time of Service: 10:39 Assessment and Plan Assessment and plan (1) Epigastric pain: Status: Acute Assessment and plan: Patient is a 79-year-old female who presents with acute onset right upper quadrant pain following a fatty meal. She presented to the ED yesterday for further evaluation. In the emergency department she was afebrile and hemodynamically stable. She was admitted overnight for observation given concern for potential acute cholecystitis. She notes this morning that she has ongoing right upper quadrant pain. She also endorses fear of eating given recent symptoms. On exam she is afebrile. She has tenderness to palpation in the right upper quadrant. She had an ultrasound this morning which was concerning for gallbladder wall edema and probable cholecystitis. Her white count remains normal and her LFTs are nonconcerning. Given these findings the diagnosis of likely early acute cholecystitis was discussed with her. Recommendations for management were discussed at length. Given her ongoing right upper quadrant pain and ultrasound concerns she would like to move forward with a laparoscopic cholecystectomy. The procedure and recovery were discussed with her as well as the risks and benefits. Consent was obtained prior to the procedure. Will remain n.p.o. for OR today when available. (2) Acute cholecystitis: Status: Acute History of Present Illness Narrative: Patient is a 79-year-old female who presented to the ED yesterday with acute onset epigastric and right upper quadrant pain. She notes that she has never had pain like this previously. She states the pain lasted for many hours so she presented to the ED for further evaluation. She denies any associated nausea, vomiting, fevers, chills. In the emergency department she had further workup including labs which were normal and CT abdomen and pelvis which was concerning for potential acute cholecystitis. Given these findings she was admitted overnight for observation with plan for ultrasound the following morning. An ultrasound was performed this morning confirming likely acute cholecystitis. She states that she is feeling somewhat better this morning. She does note however ongoing epigastric and right upper quadrant pain. She denies any fevers, chills, nausea, vomiting. She states that she is afraid to eat given some ongoing pain and prior symptoms. She endorses a past surgical history of an appendectomy and C-sections. She notes that she is able to perform all of her activities at home and denies associated shortness of breath or chest pain. She states that she does have some back pain and musculoskeletal pain which keeps her from more activity. Review of Systems Constitutional Constitutional: Denies chills and Denies fever(s) Cardiovascular Cardiovascular: Denies chest pain and Denies dyspnea Respiratory Respiratory: Denies dyspnea Gastrointestinal Gastrointestinal: Denies nausea and Denies vomiting PFSH All Active Problems Benign essential hypertension (Acute) Epigastric pain (Acute) Acute cholecystitis (Acute) Pain of paraspinal muscle (Acute) Scapulothoracic bursitis of right shoulder (Acute) Retinal artery branch occlusion (Acute) Pain in joint involving lower leg (Acute) Chronic cough (Acute) Anxiety (Chronic) Spinal stenosis (Acute) Shoulder pain, bilateral (Acute) Arthritis (Acute) Intermittent palpitations (Acute) Renal insufficiency (Chronic) Leg cramps (Acute) Low back pain (Acute) Painful total knee replacement, right (Acute) Right knee pain (Acute) Trigger ring finger of left hand (Acute) Rotator cuff tear arthropathy of both shoulders (Acute) Status post replacement of left shoulder joint (Acute 02/27/17) Status post replacement of right shoulder joint (Acute ~03/2018) Trochanteric bursitis, right hip (Acute) Injection: 09/28/2020 Arthritis of right hip (Acute) 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 Paulina Eng Arthroscopy, Shoulder right Family History Mother Cancer Hypertension Stroke Sister Carpal tunnel syndrome Other Diabetes Social History Smoking/Tobacco Use Status: Former Tobacco Use Tobacco: How many years used: 45 Smoking risk assessment performed?: Yes Alcohol Intake: never Details: OCCASIONAL Drug use: Never Substance use type: does not use Household members: spouse Housing: house Number of Children: 3 Current gender identity: male Do you feel safe at home: Yes Do you feel safe in your relationship?: Yes Exam Narrative Exam Narrative: General: No acute distress. Skin: Good turgor, no visible rashes or lesion HEENT: Normocephalic, atraumatic CV: Regular rate Lungs: Bilateral equal chest rise, non-labored breathing Abdomen: Soft, non-distended, tenderness to palpation in RUQ Extremities: Warm, well perfused Neurologic: No focal deficits Psychiatric: Alert and oriented, normal mood and affect Results Last Vital Signs Temp 35.9 C L 08/03/25 15:07 Pulse 85 08/03/25 16:31 Resp 26 H 08/03/25 16:31 BP 188/72 H 08/03/25 16:31 Pulse Ox 97 08/03/25 16:31 Labs 08/04/25 07:17 08/04/25 07:17 Labs: Laboratory Results - last 24 hr 08/03/25 08/03/25 08/03/25 15:22 16:20 16:35 WBC 7.44 RBC 4.63 Hgb 13.2 Hct 40.5 MCV 88 MCH 28.5 MCHC 32.6 RDW 13.8 Plt Count 243 MPV 9.5 Immature Gran % 0.1 Neutrophils % 74.7 Lymphocytes % 16.3 Monocytes % 4.7 Eosinophils % 3.9 Basophils % 0.3 Nucleated RBC % 0.0 Absolute Neutrophils 5.56 Absolute Lymphocytes 1.21 Absolute Monocytes 0.35 Absolute Eosinophils 0.29 Absolute Basophils 0.02 VBG Lactate 2.2 H* Sodium 140 Potassium 3.9 Chloride 105 Carbon Dioxide 26.4 Anion Gap 8.6 BUN 20 Creatinine 0.81 Est GFR (CKD-EPI 2020) 68.10 Glucose 158 H Calcium 9.3 Magnesium 2.1 Total Bilirubin 0.5 AST 36 H ALT 32 Alkaline Phosphatase 121 H Troponin I 7 8 Total Protein 7.0 Albumin 4.3 Lipase 31 Urine Color Yellow Urine Clarity Clear Urine pH 7.0 Ur Specific [place] 1.015 Urine Protein Negative Urine Ketones Negative Urine Blood Negative Urine Nitrite Negative Urine Bilirubin Negative Urine Urobilinogen 0.2 Ur Leukocyte Esterase Negative Urine Glucose Negative
[2025-08-03] MEDS: PIPERACILLIN/TAZO 4.5 GM in Normal Saline 100 ML IVPB (17:22)
--- NOTE | 2025-08-03 17:23 | W.PM.HP.N ---
Date of service: 08/03/25 Time of Service: 17:00 Assessment and Plan Assessment and plan (1) Epigastric pain: Status: Acute Assessment and plan: Possible cholecystitis Appreciate general surgery consult NPO US in the morning CBC, CMP in the morning (2) Benign essential hypertension: Status: Acute Assessment and plan: Hold home regimen - treat pain first for BP elevations History of Present Illness History of Present Illness Chief Complaint: abdominal pain Narrative: Sonia Ardon is a 79 year old woman presenting August 03 with severe abdominal pain radiating to her back after eating breakfast. She says that this pain is worse than childbirth; she has 5 sons. On interview in the ED, her pain is currently well controlled after IV tylenol. She is also very concerned about a pruritic rash that has bothered her for several weeks, which keeps her from sleeping. She normally takes melatonin, but recently has taken some norcos for insomnia, as she still has some after she was prescribed it last year for chronic pain. She has not eaten since breakfast and is not hungry. She reports that her back hurts about the same as always. No chest pain, no shortness of breath. In the ED her blood pressure was elevated 144/106, vitals otherwise unremarkable. EKG NSR. CTA chest/abdomen/pelvis without evidence of acute vascular disease nor pancreatitis; gallbladder imaging suggestive of cholecystitis. Ultrasound not available at this facility at this time. No leukocytosis. Lactic acidosis 2.2. AST slightly elevated 36, ALP slightly elevated 121. Negative troponin. Negative lipase. Patient was given IV tylenol, IV fluids and zosyn. PFSH All Active Problems Benign essential hypertension (Acute) Epigastric pain (Acute) Acute cholecystitis (Acute) Pain of paraspinal muscle (Acute) Scapulothoracic bursitis of right shoulder (Acute) Retinal artery branch occlusion (Acute) Pain in joint involving lower leg (Acute) Chronic cough (Acute) Anxiety (Chronic) Spinal stenosis (Acute) Shoulder pain, bilateral (Acute) Arthritis (Acute) Intermittent palpitations (Acute) Renal insufficiency (Chronic) Leg cramps (Acute) Low back pain (Acute) Painful total knee replacement, right (Acute) Right knee pain (Acute) Trigger ring finger of left hand (Acute) Rotator cuff tear arthropathy of both shoulders (Acute) Status post replacement of left shoulder joint (Acute 02/27/17) Status post replacement of right shoulder joint (Acute ~03/2018) Trochanteric bursitis, right hip (Acute) Injection: 09/28/2020 Arthritis of right hip (Acute) 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 Paulina Eng Arthroscopy, Shoulder right Family History Mother Cancer Hypertension Stroke Sister Carpal tunnel syndrome Other Diabetes Social History Smoking/Tobacco Use Status: Former Tobacco Use Tobacco: How many years used: 45 Smoking risk assessment performed?: Yes Alcohol Intake: never Details: OCCASIONAL Drug use: Never Substance use type: does not use Household members: spouse Housing: house Number of Children: 3 Current gender identity: male Do you feel safe at home: Yes Do you feel safe in your relationship?: Yes Meds Allergies and Home Medications Allergies Allergy/AdvReac Type Severity Reaction Status Date / Time cephalexin (From Keflex) Allergy Other (See Verified 12/30/23 15:08 Comment) diclofenac Allergy Other (See Verified 12/30/23 15:08 Comment) diltiazem (From Dilacor XR) Allergy Other (See Verified 12/30/23 15:08 Comment) gabapentin Allergy Other (See Verified 12/30/23 15:08 Comment) gadoterate meglumine (From Allergy Other (See Verified 12/30/23 15:08 Dotarem) Comment) misoprostol Allergy Unknown Verified 12/30/23 15:08 prednisone Allergy Other (See Verified 12/30/23 15:08 Comment) hydromorphone AdvReac Severe Nausea Verified 12/30/23 15:08 propoxyphene HCl (From AdvReac Severe nausea/vomi Verified 12/30/23 15:08 Darvon) ting tramadol AdvReac Intermediate Nausea Verified 12/30/23 15:08 Home Medications ?Medication ?Instructions ?Recorded ?Confirmed ?Type omeprazole 20 mg capsule,delayed 20 mg PO DAILY 03/16/15 12/30/23 History release acetaminophen 500 mg tablet 1,000 mg PO PRN PRN 09/11/16 08/03/25 History (Tylenol Extra Strength) Prevagen PO DAILY 10/16/21 12/30/23 History albuterol sulfate 90 mcg/actuation 2 puff inhalation Q4H PRN PRN 10/16/21 12/30/23 History aerosol inhaler cholecalciferol (vitamin D3) 25 25 mcg PO DAILY 10/16/21 12/30/23 History mcg (1,000 unit) capsule ibuprofen 600 mg tablet 600 mg PO Q6H PRN 10/16/21 12/30/23 History melatonin 10 mg capsule 10 mg PO HS PRN 10/16/21 12/30/23 History magnesium oxide 800 mg PO QHS 09/25/22 12/30/23 History turmeric root extract 500 mg 500 mg PO DAILY 09/29/22 12/30/23 History capsule tizanidine 4 mg capsule 4 mg PO Q8H PRN 02/04/23 12/30/23 History losartan 50 mg-hydrochlorothiazide 2 tab PO DAILY 12/30/23 12/30/23 History 12.5 mg tablet pyridoxine (vitamin B6) 10 mg 10 mg PO DAILY 12/30/23 12/30/23 History tablet losartan 100 mg tablet 100 mg PO DAILY 08/03/25 08/03/25 History Exam Narrative Exam Narrative: General: This is a pleasant, obese woman in no distress HEENT: Normocephalic, atraumatic CV: RRR Resp: CTAB Abd: soft, severe pain with epigastric palpation, +Borrego MSK: voluntary motion x4 Neuro: awake, alert, no focal deficits Results Labs 08/03/25 15:22 08/03/25 15:22 Labs: Laboratory Results - last 24 hr 08/03/25 08/03/25 08/03/25 15:22 16:20 16:35 WBC 7.44 RBC 4.63 Hgb 13.2 Hct 40.5 MCV 88 MCH 28.5 MCHC 32.6 RDW 13.8 Plt Count 243 MPV 9.5 Immature Gran % 0.1 Neutrophils % 74.7 Lymphocytes % 16.3 Monocytes % 4.7 Eosinophils % 3.9 Basophils % 0.3 Nucleated RBC % 0.0 Absolute Neutrophils 5.56 Absolute Lymphocytes 1.21 Absolute Monocytes 0.35 Absolute Eosinophils 0.29 Absolute Basophils 0.02 VBG Lactate 2.2 H* Sodium 140 Potassium 3.9 Chloride 105 Carbon Dioxide 26.4 Anion Gap 8.6 BUN 20 Creatinine 0.81 Est GFR (CKD-EPI 2020) 68.10 Glucose 158 H Calcium 9.3 Magnesium 2.1 Total Bilirubin 0.5 AST 36 H ALT 32 Alkaline Phosphatase 121 H Troponin I 7 8 Total Protein 7.0 Albumin 4.3 Lipase 31 Urine Color Yellow Urine Clarity Clear Urine pH 7.0 Ur Specific [place] 1.015 Urine Protein Negative Urine Ketones Negative Urine Blood Negative Urine Nitrite Negative Urine Bilirubin Negative Urine Urobilinogen 0.2 Ur Leukocyte Esterase Negative Urine Glucose Negative Last Vital Signs Temp 35.9 C L 08/03/25 15:07 Pulse 83 08/03/25 17:01 Resp 14 08/03/25 17:01 BP 198/91 H 08/03/25 17:01 Pulse Ox 98 08/03/25 17:01 VTE Prohylaxis Risk Level: Moderate/High Risk Contraindications: Other (possible surgery) Prophylaxis: Mechanical Time Spent Time spent with Patient: <40 minutes Time was spent: preparing to see the patient(eg.review tests), obtaining and/or reviewing separately otained hiistory, ordering medications,tests, procedures, referring, communicating with other health progressive care unit registered nurse, indepentently interpreting results, counseling the patient and care coordination
--- NOTE | 2025-08-03 17:59 | W.PC.ACHO ---
Registration Status: REG ER Primary Language: Preferred Language: French ED Information & Data Chief Complaint Epigastric Pain/Over45 08/03/25 15:48 Triage Note pt here with epigastric pain 08/03/25 15:07 that radiates to her back that started this morning after breakfast. pt endorses nausea. No other symptoms reported. Medical / Surgical History (Last Reviewed 06/17/23 @ 14:13 by MARTHA Jones) Retinal vein occlusion Type 2 diabetes mellitus Lumbosacral radiculopathy Blood in stool Abnormal mammogram of left breast Adamson's palsy Hypertension GERD (gastroesophageal reflux disease) Osteoarthritis Colon polyps Obesity (BMI 35.0-39.9 without comorbidity) (Last Reviewed 06/17/23 @ 14:13 by MARTHA Jones) S/P lumbar spine operation S/P appendectomy H/O: hysterectomy History of section, classical Hx of cataract surgery H/O total knee replacement H/O shoulder replacement S/P shoulder surgery Replacement of total knee joint Colonoscopy - IV Sedation Colonoscopy (IV) (04/09/15) Arthroscopy, Shoulder Most Recent Vital Signs Temperature 35.9 C L 08/03/25 15:07 Temperature Source Temporal Artery Scan 08/03/25 15:07 Pulse 83 08/03/25 17:01 Pulse 87 08/03/25 17:01 Respiratory Rate 14 08/03/25 17:01 Blood Pressure 198/91 H 08/03/25 17:01 Blood Pressure Mean 121 08/03/25 17:01 Blood Pressure Position Supine 08/03/25 15:07 Pulse Oximetry 98 08/03/25 17:01 Oxygen Delivery Method Room Air 08/03/25 15:07 Oxygen Flow Rate 0 08/03/25 15:07 Pain Level 10 08/03/25 15:07 Allergies cephalexin (From Keflex) Allergy (Verified 12/30/23 15:08) Other (See Comment) diclofenac Allergy (Verified 12/30/23 15:08) Other (See Comment) diltiazem (From Dilacor XR) Allergy (Verified 12/30/23 15:08) Other (See Comment) gabapentin Allergy (Verified 12/30/23 15:08) Other (See Comment) gadoterate meglumine (From Dotarem) Allergy (Verified 12/30/23 15:08) Other (See Comment) misoprostol Allergy (Verified 12/30/23 15:08) Unknown prednisone Allergy (Verified 12/30/23 15:08) Other (See Comment) hydromorphone Adverse Reaction (Severe, Verified 12/30/23 15:08) Nausea propoxyphene HCl (From Darvon) Adverse Reaction (Severe, Verified 12/30/23 15:08) nausea/vomiting tramadol Adverse Reaction (Intermediate, Verified 12/30/23 15:08) Nausea Precautions Isolation Standard precaution 08/03/25 15:11 Active Medications Generic Name Dose Route Start Last Admin Trade Name Freq PRN Reason Stop Dose Admin Iohexol 100 ml 08/03/25 16:15 08/03/25 16:05 Omnipaque 350 Mg/Ml 100 Ml Btl IJ 09/02/25 23:59 100 ml DIRECTED LORETTA Administration Sodium Chloride 0 ml 08/03/25 16:04 08/03/25 16:06 Normal Saline Flush 10 Ml Syr IVP 10 ml PRN PRN Administration Sodium Chloride 50 ml 08/03/25 16:15 08/03/25 16:06 Normal Saline - Diluent 50 Ml Vial IJ 50 ml DIRECTED LORETTA Administration IV IV Catheter Type [Right Peripheral IV Antecubital] Diet Orders Category Date Time Status Nothing Per Oral [DIET] Nutrition 08/03/25 17:10 Active Diagnostics 08/03/25 08/03/25 08/03/25 Range/Units 16:35 16:20 15:22 WBC 7.44 (4.4-10.8) 10^3/uL RBC 4.63 (3.93-5.22) 10^6/uL Hgb 13.2 (11.2-15.7) g/dL Hct 40.5 (36.0-46.0) % MCV 88 (80-95) fL MCH 28.5 (27.0-33.0) pg MCHC 32.6 (32.0-36.0) % RDW 13.8 (11.7-14.6) % Plt Count 243 (130-400) 10^3/uL MPV 9.5 (8.0-11.0) fL Immature Gran % 0.1 % Neutrophils % 74.7 % Lymphocytes % 16.3 % Monocytes % 4.7 % Eosinophils % 3.9 % Basophils % 0.3 % Nucleated RBC % 0.0 (0.0-0.3) % Absolute Neutrophils 5.56 (1.2-6.7) 10^3/uL Absolute Lymphocytes 1.21 (1.2-3.4) 10^3/uL Absolute Monocytes 0.35 (0.1-0.8) 10^3/uL Absolute Eosinophils 0.29 (0.0-0.7) 10^3/uL Absolute Basophils 0.02 (0.0-0.2) 10^3/uL VBG Lactate 2.2 H* (<or=2.0) mmol/L Sodium 140 (136-145) mmol/L Potassium 3.9 (3.5-5.1) mmol/L Chloride 105 (98-107) mmol/L Carbon Dioxide 26.4 (20.0-31.0) mmol/L Anion Gap 8.6 (3-11) mmol/L BUN 20 (9-23) mg/dL Creatinine 0.81 (0.55-1.02) mg/dL Est GFR (CKD-EPI 2020) 68.10 (mL/min/1.73m2) Glucose 158 H (74-106) mg/dL Calcium 9.3 (8.3-10.6) mg/dL Magnesium 2.1 (1.6-2.6) mg/dL Total Bilirubin 0.5 (0.2-1.2) mg/dL AST 36 H (<34) U/L ALT 32 (10-49) U/L Alkaline Phosphatase 121 H (46-116) U/L Troponin I 8 7 (<35) ng/L Total Protein 7.0 (5.7-8.2) g/dL Albumin 4.3 (3.2-5.0) g/dL Lipase 31 (<53) U/L Urine Color Yellow (Yellow) Urine Clarity Clear (Clear) Urine pH 7.0 (5-8) Ur Specific [place] 1.015 (1.005-1.025) Urine Protein Negative (Neg-Trace) mg/dL Urine Ketones Negative (Negative) mg/dL Urine Blood Negative (Negative) Urine Nitrite Negative (Negative) Urine Bilirubin Negative (Negative) Urine Urobilinogen 0.2 (Up to 0.2) mg/dL Ur Leukocyte Esterase Negative (Negative) Urine Glucose Negative (Negative) mg/dL Intake and Output - 24 Hour Total 08/03/25 15:04 thru 08/03/25 16:23 Intake Total 1100 Balance 1100 Weight 87.997 kg Intake: IV 1100 Falls Risk Assessment History of Falls No History 08/03/25 15:11 Contributing Factors No Factors 08/03/25 15:11 Ambulatory Aids Independent 08/03/25 15:11 Tubes/Lines None 08/03/25 15:11 Gait Evaluation No gait disturbance 08/03/25 15:11 Cognition No cognitive impairment 08/03/25 15:11 Fall Total Score 0 08/03/25 15:11 Level of Risk Standard/Low Risk 08/03/25 15:11 Problems (Last Reviewed 06/17/23 @ 14:13 by MARTHA Jones) Epigastric pain (Acute) Attestation Statement: By documenting the first initial, last name, and credentials of the reporting nurse below, both parties acknowledge that all relevant information regarding the patient handoff has been communicated, and that all questions have been addressed to ensure continuity and safety of care. Additional Patient Information/Comments: Report Received From: Suzanna Patient stated that she started to develop severe epigastric pain radiating to her back after eating breakfast this morning, She tried lizett lilli and lizett tea and pain didn't improve. She came to the ER with progressing pain, got Zosyn and IV tylenol and brought pain from 10 to a 2. Patient is alert and oriented x3, vss on room air and is independent with ambulation.
[2025-08-03] MEDS: diphenhydrAMINE 50 MG/ML VIAL 25 MG IVP (18:31)
[2025-08-03] MEDS: MORPHine 2 MG/ML SYR 0.5 MG IVP (20:00)
[2025-08-03] MEDS: Melatonin 3 MG TAB 9 MG PO (20:02)
[2025-08-03] MEDS: Normal Saline 1,000 ML 125 ML IV (21:21)
[2025-08-04] VITALS (17 sets, daily range): BP systolic 97–204; BP diastolic 49–90; PULSE 60–89; RESP 13–21; TEMP 36.1–36.8; O2SAT 92–97; BMI 33.8
[2025-08-04] MEDS: PIPERACILLIN/TAZO 4.5 GM in Normal Saline 100 ML IVPB ×3 (00:16→10:24)
[2025-08-04] MEDS: Normal Saline 1,000 ML 125 ML IV (05:24)
[2025-08-04] MEDS: diphenhydrAMINE 50 MG/ML VIAL 25 MG IVP (06:07)
[2025-08-04] MEDS: ACETAMINOPHEN 1,000 MG/100 ML BAG 400 MG IVPB ×2 (07:21→14:32)
[2025-08-04 07:32] LABS: Abs Immature Grans 0.02 10^3/uL (0.0-0.06); HCT 38.5 % (36.0-46.0); HGB 12.8 g/dL (11.2-15.7); Immature Grans % 0.3 %; MCH 29.7 pg (27.0-33.0); MCHC 33.2 % (32.0-36.0); MCV 89 fL (80-95); MPV 9.4 fL (8.0-11.0); Platelet Count 192 10^3/uL (130-400); RBC 4.31 10^6/uL (3.93-5.22); RDW 14.0 % (11.7-14.6); RDW-SD 46.1 fL; WBC 5.90 10^3/uL (4.4-10.8)
[2025-08-04 07:54] LABS: ALT 30 U/L (10-49); AST 33 U/L (<34); Albumin 3.8 g/dL (3.2-5.0); Alkaline Phosphatase 96 U/L (46-116); Anion Gap 8.9 mmol/L (3-11); BUN 14 mg/dL (9-23); Bilirubin, Total 0.7 mg/dL (0.2-1.2); CO2 24.1 mmol/L (20.0-31.0); Calcium 8.6 mg/dL (8.3-10.6); Chloride 111 mmol/L (98-107); Cholesterol 170 mg/dL (<200); Glucose 108 mg/dL (74-106); HDL Cholesterol 56 mg/dL (>or=50); Potassium 4.0 mmol/L (3.5-5.1); Sodium 144 mmol/L (136-145); Total Protein 6.2 g/dL (5.7-8.2)
--- NOTE | 2025-08-04 08:00 | DI.US_ITS ---
Exam(s) US ABDOMEN LIMITED EXAM: US ABDOMEN LIMITED CLINICAL HISTORY: query cholecystitis TECHNIQUE: Ultrasound abdomen performed using standard protocol. COMPARISON: CT CT THORAX ABD/PEL CTA from 08/03/2025 FINDINGS: There is no ascites evident. LIVER: There are no hepatic lesions evident nor dilatation of intrahepatic ducts. GALLBLADDER/BILIARY: There is cholelithiasis. There are 2 shadowing intraluminal gallstones noted,. There also appears to be mild edema of the anterior gallbladder wall. The common hepatic duct isupper normal diameter, measuring 6mm at the level of stephania hepatis. PANCREAS: There is no evidence of pancreatic mass nor dilatation of the pancreatic duct. RIGHT KIDNEY:There is a benign cyst in the posterior cortex measuring 4.5 cm. Does not require further workup. No solid right renal masses. No calculi. No hydronephrosis. IMPRESSION: 1. Cholelithiasis and mild gallbladder wall edema. Probable cholecystitis. The CBD is not dilated. 2. No other significant ultrasound findings in the right upper quadrant. 3. There is no ascites. DATA REPOSITORY:
--- NOTE | 2025-08-04 09:19 | INITIAL_ITS ---
Date of service: 08/04/25 Time of Service: 09:19 Care Management Initial Assmt Initial Assessment Reason for Hospitalization: acute cholecystitis Functional Status/Living Situation Patient Presentation: Sonia presented to the ED yesterday afternoon with c/o severe epigastric pain, radiating to her back. She also stated that she has had diarrhea and nausea for 3 days. She was admitted to observation for ultrasound this morning and surgical consult. After her ultrasound this morning, it was decided that Sonia should have a laporoscopic cholectstectomy. Sonia was back from her surgery when CM met with her today. She was lying in bed, had an ice pack to her belly, but was still quick with a smile. She stated that she wasn't feeling great, but was still disappointed that she will not be discharged until tomorrow. She likes her own bed. Sonia stated that she is independent in the community, and does not need or use any community services at this time. She lives at home with her and has support from her caodaism group and from her son and [id number] that live close by. Town of Residence: [place] Resides with: Spouse (Dk) Significant Other/Family: Local (5 sons) Natural Supports: kD, her children and their families, chur Employment Status: Retired Instrumental Activities of Daily Living (ADLs): Independent Medications Medication Management: No Issues/Barriers identified Advance Directives Advance Directives: Do you have an Advance Directive: Y 16, 10:02 AD On File at [facility]: Y 08/07/, 12:17 Date Asked 06/16/25 06/16/25, 11:31 AD Date Reviewed 08/03/25 Today, 08:42 COLST On File at [facility] COLST Date Scanned Code Status Resuscitation Status Full Code Insurance Coverage/Financial Issues Insurance: Medicare Part A & B - [id number] AETNA Senior Supplemental Ins? Care Team Visit Care Team Role Provider Type Jayna Lagunas APRN MD [facility] STAFF PHYSICIAN Shae Cobos MD Primary Care Provider [facility] STAFF PHYSICIAN Jo Ann Blevins MD Other Providers [facility] STAFF PHYSICIAN MARTHA Murray Emergency Provider PHYSICIANS ASSISTANT Vel Landa MD Admit Provider [facility] STAFF PHYSICIAN Attending Provider Discharge Potential Discharge Needs: PCP F/U Appt and Surgical F/U Appt Anticipated Barriers to Discharge: None Identified Patient/Family Education Needs: Review discharge instructions, discuss Ask Me Three Transportation: Private vehicle Plan: Anticipate that Sonia will discharge home tomorrow once she is medically stable. She will f/u with her PCP and with the surgeon and continue per her plan of care. Sonia will transport home in a private vehicle. CM will continue to follow and to updated the plan as needed. Social Determinants of Health Screening Social Determinants of health last assessed in clinic: 08/04/25 Will the Patient Participate in the Screening?: Yes Do you worry about having a steady place to live?: no Problems where you live: no known problems In the past 12 months, have you had to go without electric, gas, oil or water in your home?: no 1. Within the past 12 months, we worried whether our food would run out before we got money to buy more.: Never true 2. Within the past 12 months, the food we bought just didn't last and we didn't have money to get more.: Never true Has lack of transportation kept you from medical appointments or from doing things needed for daily living?: no Has anyone in your life made you feel unsafe or unsupported?: no How hard is it for you to pay for the very basics like food, housing, medical care, and heating? Would you say it is:: Not hard at all Do you want help finding or keeping work or a job?: I do not need or want help If for any reason you need help with day-to-day activities such as bathing, preparing meals, shopping, managing finances, etc., do you get the help you need?: I don?t need any help How often do you feel lonely or isolated from those around you?: Never Do you speak a language other than Citizen [place] at home?: No Does the patient want assistance with any of the above?: No PFSH All Active Problems Severe sepsis (Acute) Pre-op evaluation (Acute) Acute acalculous cholecystitis (Acute) Benign essential hypertension (Acute) Epigastric pain (Acute) Acute cholecystitis (Acute) Pain of paraspinal muscle (Acute) Scapulothoracic bursitis of right shoulder (Acute) Retinal artery branch occlusion (Acute) Pain in joint involving lower leg (Acute) Chronic cough (Acute) Anxiety (Chronic) Spinal stenosis (Acute) Shoulder pain, bilateral (Acute) Arthritis (Acute) Intermittent palpitations (Acute) Renal insufficiency (Chronic) Leg cramps (Acute) Low back pain (Acute) Painful total knee replacement, right (Acute) Right knee pain (Acute) Trigger ring finger of left hand (Acute) Rotator cuff tear arthropathy of both shoulders (Acute) Status post replacement of left shoulder joint (Acute 02/27/17) Status post replacement of right shoulder joint (Acute ~03/2018) Trochanteric bursitis, right hip (Acute) Injection: 09/28/2020 Arthritis of right hip (Acute) 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 Paulina Eng Arthroscopy, Shoulder right Family History Mother Cancer Hypertension Stroke Sister Carpal tunnel syndrome Other Diabetes Social History Smoking/Tobacco Use Status: Former Tobacco Use Tobacco: How many years used: 45 Smoking risk assessment performed?: Yes Alcohol Intake: never Details: OCCASIONAL Drug use: Never Substance use type: does not use Household members: spouse Housing: house Number of Children: 3 Current gender identity: male Do you feel safe at home: Yes Do you feel safe in your relationship?: Yes
--- NOTE | 2025-08-04 10:25 | PGE_ITS ---
Date of Service Date of service: 08/04/25 Time of Service: Assessment and Plan Assessment and plan (1) Acute acalculous cholecystitis: Status: Acute Assessment and plan: Patient presenting as per Point 1 ABD US : Acute gallbladder wall inflammation w/o cholelithiasis or CBD dilation AST 36 ALK 121 :trending down Lactate 2.2 then 1.7 On piperacillin tazobactam IVF ongoing - stop when tolerating oral s/p OR Surgery consult: OR today for cholecystectomy -Post surgery : resume diet, BP meds , pain management and monitor urinary output -Possible discharge today T chol 170, TGC 119, LDL 90.6. 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 [facility] Hx of asthma - using albuterol 3-4 times per year- but last CT showed emphesematous changes in Topronin negative X2 on presentation - ACS negative - EKG 08/03 w/o signs of coronary occlusion or ischemia (5) Benign essential hypertension: Status: Acute Assessment and plan: Hold home regimen as per Point 3 Ongoing pain management (6) Retinal vein occlusion: Assessment and plan: Hx of - and on monthly management at [facility] (7) GERD (gastroesophageal reflux disease): Assessment and plan: History of GERD Will use IV PPI and considering short term oral Discussed with Dr Landa Subjective Subjective Patient reports: no new complaints, still having pain, voiding w/o difficulty, flatus, no bowel movement (last 08/03), afebrile and other (NPO for OR); denies tolerating liquids well, tolerating a regular diet, blood in stool, nausea, vomiting or shortness of breath Exam Narrative Exam Narrative: Normocephalic , non-icteric sclera , alert and oriented X4, no neurological deficit, unalbered breathing clear lungs S1, S2, regular ,PPPX4 no LEs edema, abdomen is rounded, non-disstended , soft , + Borrego's signs, no CVA tenderness, moves all 4 ex Objective Last Vital Signs Temp 36.8 C 08/04/25 07:09 Pulse 69 08/04/25 07:09 Resp 16 08/04/25 07:09 BP 132/53 L 08/04/25 07:09 Pulse Ox 97 08/04/25 07:09 Laboratory Results - last 24 hr 08/03/25 08/03/25 08/03/25 15:22 16:20 16:35 WBC 7.44 RBC 4.63 Hgb 13.2 Hct 40.5 MCV 88 MCH 28.5 MCHC 32.6 RDW 13.8 Plt Count 243 MPV 9.5 Immature Gran % 0.1 Neutrophils % 74.7 Lymphocytes % 16.3 Monocytes % 4.7 Eosinophils % 3.9 Basophils % 0.3 Nucleated RBC % 0.0 Absolute Neutrophils 5.56 Absolute Lymphocytes 1.21 Absolute Monocytes 0.35 Absolute Eosinophils 0.29 Absolute Basophils 0.02 VBG Lactate 2.2 H* Sodium 140 Potassium 3.9 Chloride 105 Carbon Dioxide 26.4 Anion Gap 8.6 BUN 20 Creatinine 0.81 Est GFR (CKD-EPI 2020) 68.10 Glucose 158 H Calcium 9.3 Magnesium 2.1 Total Bilirubin 0.5 AST 36 H ALT 32 Alkaline Phosphatase 121 H Troponin I 7 8 Total Protein 7.0 Albumin 4.3 Triglycerides Total Cholesterol LDL Cholesterol, Calc HDL Cholesterol Lipase 31 Urine Color Yellow Urine Clarity Clear Urine pH 7.0 Ur Specific Rew 1.015 Urine Protein Negative Urine Ketones Negative Urine Blood Negative Urine Nitrite Negative Urine Bilirubin Negative Urine Urobilinogen 0.2 Ur Leukocyte Esterase Negative Urine Glucose Negative 08/04/25 07:17 WBC 5.90 RBC 4.31 Hgb 12.8 Hct 38.5 MCV 89 MCH 29.7 MCHC 33.2 RDW 14.0 Plt Count 192 MPV 9.4 Immature Gran % 0.3 Neutrophils % 66.2 Lymphocytes % 20.5 Monocytes % 6.1 Eosinophils % 6.6 Basophils % 0.3 Nucleated RBC % 0.0 Absolute Neutrophils 3.90 Absolute Lymphocytes 1.21 Absolute Monocytes 0.36 Absolute Eosinophils 0.39 Absolute Basophils 0.02 VBG Lactate 1.7 Sodium 144 Potassium 4.0 Chloride 111 H Carbon Dioxide 24.1 Anion Gap 8.9 BUN 14 Creatinine 0.84 Est GFR (CKD-EPI 2020) 65.30 Glucose 108 H Calcium 8.6 Magnesium Total Bilirubin 0.7 AST 33 ALT 30 Alkaline Phosphatase 96 Troponin I Total Protein 6.2 Albumin 3.8 Triglycerides 119 Total Cholesterol 170 LDL Cholesterol, Calc 90.6 HDL Cholesterol 56 Lipase Urine Color Urine Clarity Urine pH Ur Specific Rew Urine Protein Urine Ketones Urine Blood Urine Nitrite Urine Bilirubin Urine Urobilinogen Ur Leukocyte Esterase Urine Glucose VTE Prohylaxis Risk Level: Moderate/High Risk Contraindications: Other (possible surgery) Prophylaxis: Mechanical Time Spent with Patient Time Spent with Patient: >50 minutes Time was spent: preparing to see the patient(eg.review tests), obtaining and/or reviewing separately otained hiistory, ordering medications,tests, procedures, referring, communicating with other health residential care facility manager, indepentently interpreting results, counseling the patient, care coordination and other
--- NOTE | 2025-08-04 11:20 | W.ANESPRE ---
General Info Date of Service Date Performed: 08/04/25 Height: 5 ft 3 in Weight: 86.7 kg Body Mass Index (BMI): 33.8 Surgical Procedure: Operation Date: 08/04/25 11:00 Proposed Procedure Side Surgeon p Cholecystectomy Laparoscopic Jo Ann Blevins MD Meds Allergies and Home Medications Allergies Allergy/AdvReac Type Severity Reaction Status Date / Time cephalexin (From Keflex) Allergy Other (See Verified 12/30/23 15:08 Comment) diclofenac Allergy Other (See Verified 12/30/23 15:08 Comment) diltiazem (From Dilacor XR) Allergy Other (See Verified 12/30/23 15:08 Comment) gabapentin Allergy Other (See Verified 12/30/23 15:08 Comment) gadoterate meglumine (From Allergy Other (See Verified 12/30/23 15:08 Dotarem) Comment) misoprostol Allergy Unknown Verified 12/30/23 15:08 prednisone Allergy Other (See Verified 12/30/23 15:08 Comment) hydromorphone AdvReac Severe Nausea Verified 12/30/23 15:08 propoxyphene HCl (From AdvReac Severe nausea/vomi Verified 12/30/23 15:08 Darvon) ting tramadol AdvReac Intermediate Nausea Verified 12/30/23 15:08 Home Medication ?Medication ?Instructions ?Recorded omeprazole 20 mg capsule,delayed 20 mg PO DAILY 03/16/15 release acetaminophen 500 mg tablet 1,000 mg PO PRN PRN 09/11/16 (Tylenol Extra Strength) Prevagen 1 tab PO DAILY 10/16/21 albuterol sulfate 90 mcg/actuation 2 puff inhalation Q4H PRN PRN 10/16/21 aerosol inhaler cholecalciferol (vitamin D3) 25 25 mcg PO DAILY 10/16/21 mcg (1,000 unit) capsule ibuprofen 600 mg tablet 600 mg PO Q6H PRN 10/16/21 melatonin 10 mg capsule 10 mg PO HS PRN 10/16/21 magnesium oxide 800 mg PO QHS 09/25/22 turmeric root extract 500 mg 500 mg PO DAILY 09/29/22 capsule tizanidine 4 mg capsule 4 mg PO Q8H PRN 02/04/23 losartan 50 mg-hydrochlorothiazide 2 tab PO DAILY 12/30/23 12.5 mg tablet Held on 08/03/25. Instructions: pt is not sure if she is taking this med 08/03/25 pyridoxine (vitamin B6) 10 mg 10 mg PO DAILY 12/30/23 tablet losartan 100 mg tablet 100 mg PO DAILY 08/03/25 Current Visit Medications: Current Medications Generic Name Dose Route Start Last Admin Trade Name Freq PRN Reason Stop Dose Admin Piperacillin Sod/Tazobactam 100 mls @ 200 mls/hr 08/03/25 23:45 08/04/25 10:24 Sod 4.5 gm/ Sodium Chloride IVPB 200 mls/hr Q6H LORETTA Administration Acetaminophen 1,000 mg in 100 mls @ 400 mls/hr 08/03/25 20:15 08/04/25 08:58 Ofirmev IVPB Infused Q6H LORETTA Infusion Sodium Chloride 1,000 mls @ 125 mls/hr 08/03/25 20:15 08/04/25 05:24 Saline 1000ml Bag IV 125 mls/hr INFUSION LORETTA Administration Melatonin 9 mg 08/03/25 20:00 08/03/25 20:02 Melatonin 3 Mg Tab PO 9 mg HS LORETTA Administration Morphine Sulfate 0.5 mg 08/03/25 17:15 08/03/25 20:00 Morphine 2 Mg/Ml Syr IVP 0.5 mg Q4H PRN PRN Administration Ondansetron HCl 4 mg 08/03/25 17:15 Ondansetron 4 Mg/2 Ml Vial IVP Q8H PRN PRN Sodium Chloride 0 ml 08/03/25 16:04 08/03/25 20:00 Normal Saline Flush 10 Ml Syr IVP 10 ml PRN PRN Administration PFSH Active Problems Active Problems: Problem Status Onset Code Benign essential hypertension Acute I10 Epigastric pain Acute R10.13 Acute cholecystitis Acute K81.0 Pain of paraspinal muscle Acute M79.18 Scapulothoracic bursitis of right shoulder Acute M75.51 Retinal artery branch occlusion Acute H34.239 Pain in joint involving lower leg Acute M25.569 Chronic cough Acute R05.3 Anxiety Chronic F41.9 Spinal stenosis Acute M48.00 Shoulder pain, bilateral Acute M25.511, M25.512 Arthritis Acute M19.90 Intermittent palpitations Acute R00.2 Renal insufficiency Chronic N28.9 Leg cramps Acute R25.2 Low back pain Acute M54.50 Painful total knee replacement, right Acute T84.84XA, Z96.651 Right knee pain Acute M25.561 Trigger ring finger of left hand Acute M65.342 Rotator cuff tear arthropathy of both shoulders Acute M75.101, M12.811, M12.812, M75.102 Status post replacement of left shoulder joint Acute 02/27/17 Z96.612 Status post replacement of right shoulder joint Acute ~03/2018 Z96.611 Trochanteric bursitis, right hip Acute M70.61 Arthritis of right hip Acute M16.11 History of right shoulder replacement Chronic ~04/2018 Z96.611 Medical History Medical History Retinal vein occlusion Type 2 diabetes mellitus Lumbosacral radiculopathy Blood in stool Abnormal mammogram of left breast Adamson's palsy Hypertension GERD (gastroesophageal reflux disease) Osteoarthritis Colon polyps Obesity (BMI 35.0-39.9 without comorbidity) Surgical History Surgical History S/P lumbar spine operation S/P appendectomy H/O: hysterectomy History of section, classical Hx of cataract surgery H/O total knee replacement H/O shoulder replacement S/P shoulder surgery Replacement of total knee joint left Colonoscopy - IV Sedation 2002 Colonoscopy (IV) (04/09/15) Dr. Paulina Eng Arthroscopy, Shoulder right Tobacco Smoking/Tobacco Use Status: Former Tobacco Use Alcohol Alcohol Intake: never Details: OCCASIONAL Substance Use Substance use: Never Substance use type: does not use Vital Signs and Lab Results Vital Signs Most Recent Vital Signs in EMR: Most Recent Vital Signs Temp Pulse Resp BP Pulse Ox 36.5 C 60 18 183/86 H 96 08/04/25 10:37 08/04/25 10:37 08/04/25 10:37 08/04/25 10:37 08/04/25 10:37 Lab Results 08/04/25 07:17 08/04/25 07:17 Complete Blood Count: WBC, (4.4-10.8) 5.90 10^3/uL Today, 07:17 RBC, (3.93-5.22) 4.31 10^6/uL Today, 07:17 Hgb, (11.2-15.7) 12.8 g/dL Today, 07:17 Hct, (36.0-46.0) 38.5 % Today, 07:17 Plt Count, (130-400) 192 10^3/uL Today, 07:17 VBG Lactate, (<or=2.0) 1.7 mmol/L Today, 07:17 Complete Metabolic Panel: Sodium, (136-145) 144 mmol/L Today, 07:17 Potassium, (3.5-5.1) 4.0 mmol/L Today, 07:17 Chloride, (98-107) 111 mmol/L H Today, 07:17 Carbon Dioxide, (20.0-31.0) 24.1 mmol/L Today, 07:17 BUN, (9-23) 14 mg/dL Today, 07:17 Creatinine, (0.55-1.02) 0.84 mg/dL Today, 07:17 Est GFR (CKD-EPI 2020), (mL/min/1.73m2) 65.30 Today, 07:17 Magnesium, (1.6-2.6) 2.1 mg/dL 08/03/25, 15:22 Calcium, (8.3-10.6) 8.6 mg/dL Today, 07:17 Albumin, (3.2-5.0) 3.8 g/dL Today, 07:17 Glucose, (74-106) 108 mg/dL H Today, 07:17 Liver Function Panel: ALT, (10-49) 30 U/L Today, 07:17 AST, (<34) 33 U/L Today, 07:17 Cardiac Panel: Troponin I, (<35) 8 ng/L 08/03/25 Pancreas Panel: Lipase, (<53) 31 U/L 08/03/25, 15:22 Anesthesia Assessment and Plan Anesthesia History Personal History: Delayed Emergence (After 1 ortho surgery at [facility].) Family History: No Family History of Anesthesia Complications Exercise Tolerance Exercise Tolerance: Metabolic Equivalents>4 Pertinent Negatives Pertinent Negatives: Other (On PPI with breakthrough HB and reflux) Cardiac & Pulmonary Exam Cardiac Exam: Heart Murmur Present (? systolic murmor...very faint) Pulmonary Exam: Clear Bilateral Breath Sounds Implantable Cardiac Device Does patient have a Pacemaker or an ICD?: No Airway Exam Known Difficult Airway: No Mallampati Class: 2 Mouth Opening: Normal (> 3cm) Thyromental Distance: Greater than 3 cm Neck Range of Motion: Full ROM Neck Circumference: Normal Teeth Condition: Removable Dentures/Plates Upper ASA Classification ASA Score: ASA 3 Emergency Case?: No NPO Status NPO Status: NPO Clears >2 hours, Solids >8 hours Anesthesia Plan Resuscitation Status: Full Code Anesthesia Technique: General Anesthesia Airway Planned: Endotracheal Tube Monitors Used: Standard Monitors and SedLine Preoperative Comments:: No history of a specific reaction to Cephalexin. Grouped with meds used during slow emergence. Pt has chronic significant back pain. Appropriately NPO. Kelley Dooley CRNA
--- NOTE | 2025-08-04 11:54 | CHAPLAIN ---
Sonia was sitting on the edge of the bed when I visited. I explained my role and that I try introduced myself to all patients, but Sonia was worried that I had bad news for her. I reassured her that I was just introducing myself. oSnia is not connected to [facility], as stated on our jehovah's witness list, but attends the [facility]. She said she hasn't been able to attend for about a month because she hasn't felt well up her intellectual property manager, Rev. Sahhla Bustos has visited her at home. Sonia gave me permission to contact Shahla, who will try to visit Sonia today.
[2025-08-04] MEDS: Lactated Ringers 1,000 ML 100 ML IV (12:19)
--- NOTE | 2025-08-04 12:36 | TELEFU_ITS ---
Documented by User: Adam Albert 08/04/25 12:41 Date of service: 08/04/25 Time of Service: 12:41 Nutrition Note NOTE: Patient on NPO, not seen by dietitian; chart assessment only. Admitted with radiating epigastric pain. Weight is steady over the short term, and slightly decreasing over the intermediate accountant, having dropped to 86.7 kg in 07/2025 from 92 kg in 01/2023, a decrease of 5.6%. Blood glucose was measured high at 158 on 08/03/2025 and 108 at 08/04/2025. A1c at 5.9. No nutrition invervention or dx; will monitor NPO status as is may pose a barrier to nutrition. Will check in with patient as needed. Time Spent in Nutritional Counseling and Treatment: 5 min Documented by User: Luis Sandoval RDN 08/04/25 12:49 Nutrition Note NOTE: Patient on NPO, not seen by dietitian; chart assessment only. Admitted with radiating epigastric pain. Weight is steady over the short term, and slightly decreasing over the intermediate accountant, having dropped to 86.7 kg in 07/2025 from 92 kg in 01/2023, a decrease of 5.6%. Blood glucose was measured high at 158 on 08/03/2025 and 108 at 08/04/2025. A1c at 5.9. No nutrition invervention or dx; will monitor NPO status as is may pose a barrier to nutrition. Will check in with patient as hospital course continues
[2025-08-04] MEDS: Bupivacaine 0.25% Pres-Free W/EPI 30 ML VIAL (12:52)
--- NOTE | 2025-08-04 13:00 | GB_PTH ---
PATIENT: Sonia Ardon LOC: U#:[id number] AGE/SX: 79/F ROOM: RE08/03/[address]: Vel Landa : 1945 BED: A DIS: 08/05/2025 SPEC #: [id number] RECD: 08/07/25 12:43 STATUS: ENT REQ #: [id number] AREN: 08/04/25 13:[address]: Vel Landa DEPT: Surgical Specimen RECD BY: Latosha Barreto ENTERED: 08/07/25 12:44 SP TYPE: GB OTHR DR: Shae Cobos Tissues: 1 - GALLBLADDER Procedures: GROSS AND MICRO LEVEL 3
--- NOTE | 2025-08-04 13:23 | BRIEFOP_ITS ---
Date of service: 08/04/25 Time of Service: 13:23 Brief Operative Note Procedure/Pre & Post Op Diagnoses/Channel Cementer Outsole Machine: Operation Date: 08/04/25 11:00 Actual Procedures p Cholecystectomy Laparoscopic(Not Applicable) - Jo Ann Blevins MD Pre-Op Diagnosis: ACUTE CHOLECYSTITIS Post-Op Diagnosis: ACUTE CHOLECYSTITIS Case Staff Physician Channel Cementer Outsole Machine: Kelley Escalante Anesthesia Anesthesia Type: Local By Surgeon and General LMA/ETT 15ml Specimen/Culture Specimen(s): GALLBLADDER Complications Complications: None Additional Procedure Notes Note: Laparoscopic cholecystectomy performed without complication. Evidence of gallbladder edema and early cholecystitis. - Ok for regular diet, advance as tolerated - Discharge appropriate when tolerating diet and pain control - No need for further antibiotics - MIVF discontinued - Pain control: Tylenol, Oxycodone PRN
--- NOTE | 2025-08-04 13:25 | W.PM.OP ---
Operative Note Operative Note PRE-OP DIAGNOSIS: Acute cholecystitis POST-OP DIAGNOSIS: same PROCEDURE: Laparoscopic cholecystectomy SURGEON: Jo Ann Blevins LANDSCAPE LABORER: Kelley Pearson ANESTHESIA TYPE: Local By Surgeon and General LMA/ETT Refer to Anesthesia Record ESTIMATED BLOOD LOSS: 15 PATHOLOGY: other (Gallbladder and contents) COMPLICATIONS: None Patient was transported to: PACU Patient's condition: stable Implants: None. Indications: Patient is a 79-year-old female who presented with acute onset right upper quadrant pain following a fatty meal. She presented to the ED yesterday for further evaluation. She was admitted overnight for observation given concern for potential acute cholecystitis. She notes this morning that she has ongoing right upper quadrant pain. On exam she is afebrile. She has tenderness to palpation in the right upper quadrant. She had an ultrasound this morning which was concerning for gallbladder wall edema and probable cholecystitis. Her white count remains normal and her LFTs are nonconcerning. Given these findings the diagnosis of likely early acute cholecystitis was discussed with her. Recommendations for management were discussed at length. Given her ongoing right upper quadrant pain and ultrasound concerns she would like to move forward with a laparoscopic cholecystectomy. The procedure and recovery were discussed with her as well as the risks and benefits. Consent was obtained prior to the procedure. Findings: Edematous, distended gallbladder. Cystic duct and cystic artery identified and clipped and transected. Gallbladder removed from fossa with electrocautery. Procedure Description: After induction of anesthesia the patient was then prepped and draped in sterile fashion. ?Prior to incision, an additional timeout was performed, which again confirmed the patient's name, date of , and the procedure to be performed, and antibiotics were given within an hour of incision. A?horizontal, 5 mm incision was made just superior to the umbilicus. The umbilical stalk was isolated using blunt dissection, and was then grasped and elevated with a penetrating towel clamp. A Veress needle was used to gain entry to the abdominal cavity and the abdomen was insufflated to 15 mmHg without incident. A 5 mm Optiview port was then placed under direct visualization. The abdomen was inspected with the laparoscope and there was no evidence of bowel injury or bleeding. After insufflation was obtained, a 10 mm subxiphoid trocar was placed under lap visualization, along with two additional 5-mm right subcostal trocars. The gallbladder was decompressed with needle aspiration as it was distended and unable to grasp. This returned bile. Next, the body of the gallbladder was grasped with a fenestrated grasper and elevated over the dome of the liver. An additional grasper was then used to grasp the infundibulum of the gallbladder in order to expose Calot's triangle. Dissection proceeded along the lateral edge using dissectors. There was noted to be edema of the gallbladder wall and surrounding fat confirming diagnosis of cholecystitis. Once the cystic duct and gallbladder neck confluence were clearly identified, we proceeded to further dissect the cystic duct from the peritoneal attachments. With the cystic duct clearly identified and then reconfirmed, two titanium clips were placed on the caudal side of the cystic duct, and two placed on the gallbladder side of the cystic duct. The cystic duct was then transected. Next, the cystic artery was identified in Calot's triangle and dissected free, encircled, and two titanium clips were placed on the caudal side and one on the cephalad side. The cystic artery was then transected. Next, the gallbladder was dissected from the gallbladder fossa in inferior to superior fashion using the Bovie hook cautery. Hemostasis was obtained using the Bovie hook cautery. Prior to removal of the gallbladder from the gallbladder fossa, all clips were inspected and found to be in good position. The gallbladder was then placed in an EndoCatch bag and removed from the peritoneal cavity through a 10 mm subxiphoid trocar. Next, the blunt grasper was introduced to facilitate exposure of the gallbladder fossa, which was then irrigated copiously with sterile normal saline and suctioned until return was free of blood or bile. Trocars were removed under laparoscopic visualization. The 10 mm subxiphoid trocar was closed with an interrupted 0 Vicryl suture. The skin was then reapproximated using 4-0 Monocryl in a running subcuticular fashion. Local anesthesia was injected into the incisions and the incisions were covered with Dermabond. The patient tolerated the procedure well. All needles, instruments, and lap pads were accounted for. The patient was extubated in the operating room and sent to PACU in good condition. Date of Procedure: 08/04/25
[2025-08-04] MEDS: fentaNYL 100 MCG/2 ML VIAL IVP ×4 (13:51→14:08)
[2025-08-04] MEDS: oxyCODONE-CR 10 MG TABCR PO (14:42)
--- NOTE | 2025-08-04 15:06 | W.ANESPOSTOP ---
Postoperative Evaluation Date, Time and Location Date Performed: 08/04/25 Time Performed: 15:06 Patient Location: PACU Vital Signs Most Recent Imported Vital Signs: Most Recent Vital Signs Temp Pulse Resp BP Pulse Ox 36.4 C L 76 16 180/75 H 94 08/04/25 14:41 08/04/25 14:41 08/04/25 14:41 08/04/25 14:41 08/04/25 14:41 Pain Score Most Recent Pain Score: Most Recent Pain Score Pain Level 9 08/04/25 14:11 Assessment Mental Status: Awake (Alert & Oriented to Patient Baseline) Airway and Respiratory Function: Patent airway with normal (patient baseline) respiratory exam Cardiovascular Function: Hemodynamically Stable Hydration Status: Adequately Hydrated Nausea & Vomiting: No Nausea or Vomiting Pain: Pain is tolerable per patient Peripheral Nerve Block: Patient did not receive a nerve block
[2025-08-04] MEDS: Losartan 50 MG TAB 100 MG PO (15:41)
[2025-08-04] MEDS: Acetaminophen 500 MG TAB 1000 MG PO (19:43)
[2025-08-04] MEDS: Melatonin 3 MG TAB 9 MG PO (19:44)
[2025-08-04] MEDS: Normal Saline Flush 10 ML SYR IVP (19:45)
[2025-08-04] MEDS: oxyCODONE 5 MG TAB PO (22:33)
[2025-08-05] MEDS: oxyCODONE 5 MG TAB PO ×2 (04:20→08:34)
[2025-08-05 04:21] VITALS: BP 169/79; PULSE 81; RESP 16; TEMP 36.1; O2SAT 95
[2025-08-05 08:08] VITALS: BP 160/70; PULSE 78; RESP 16; TEMP 37.2; O2SAT 99
[2025-08-05] MEDS: Losartan 50 MG TAB 100 MG PO (08:32)
--- NOTE | 2025-08-05 09:22 | DSE_ITS ---
Date of service: 08/05/25 Time of Service: 08:00 DS: Diagnosis Discharge Diagnosis (1) Acute acalculous cholecystitis: Status: Resolved (2) Severe sepsis: Status: Resolved (3) Benign essential hypertension: Status: Acute (4) GERD (gastroesophageal reflux disease): Discharge Plan Disposition Patient Disposition: Home Anticipated Discharge Date/Time: 08/05/25 09:17 Condition: Good Discharge Details Reason For Visit: Abdominal Pain Admit Date/Time: 08/03/25 17:06 Admit Provider: Vel Landa Attending Provider: Vel Landa Primary Care Provider: Shae Cobos V Hospital Course Hospital Course: Sonia Ardon is a 79 year old woman presenting August 03 with severe abdominal pain radiating to her back after eating breakfast. She says that this pain is worse than childbirth; she has 5 sons. On interview in the ED, her pain is currently well controlled after IV tylenol. She is also very concerned about a pruritic rash that has bothered her for several weeks, which keeps her from sleeping. She normally takes melatonin, but recently has taken some norcos for insomnia, as she still has some after she was prescribed it last year for chronic pain. She has not eaten since breakfast and is not hungry. She reports that her back hurts about the same as always. No chest pain, no shortness of breath. In the ED her blood pressure was elevated 144/106, vitals otherwise unremarkable. EKG NSR. CTA chest/abdomen/pelvis without evidence of acute vascular disease nor pancreatitis; gallbladder imaging suggestive of cholecystitis. Ultrasound not available at this facility at this time. No leukocytosis. Lactic acidosis 2.2. AST slightly elevated 36, ALP slightly elevated 121. Negative troponin. Negative lipase. Patient was given IV tylenol, IV fluids and zosyn. Patient found to have acute acalculous cholecystitis on US, taken to OR August 04. Postoperative course unremarkable. She is safe to return home to her family. Appreciate general surgery care and followup. Home Meds and New Rx's Prescriptions: Continued tizanidine 4 mg capsule 4 mg PO Q8H PRN losartan-hydrochlorothiazide 50-12.5 mg tablet 2 tab PO DAILY pyridoxine (vitamin B6) 10 mg tablet 10 mg PO DAILY omeprazole 20 MG capsule,delayed release(DR/EC) 20 mg PO DAILY ibuprofen 600 mg tablet 600 mg PO Q6H PRN cholecalciferol (vitamin D3) 25 mcg (1,000 unit) capsule 25 mcg PO DAILY Prevagen 1 tab PO DAILY melatonin 10 mg capsule 10 mg PO HS PRN albuterol sulfate 90 mcg/actuation HFA aerosol inhaler 2 puff inhalation Q4H PRN PRN magnesium oxide 400 mg magnesium capsule 800 mg PO QHS turmeric root extract 500 mg capsule 500 mg PO DAILY acetaminophen [Tylenol Extra Strength] 500 MG tablet 1,000 mg PO PRN PRN losartan 100 mg tablet 100 mg PO DAILY Patient Comments: TAKE ONE TABLET BY MOUTH EVERY DAY No Action oxycodone 5 mg tablet 5 mg PO Q4H MDD 30 PRN (Reason: pain) Qty: 7 0RF Rx Instructions: Take 1 tablet as needed every 4 hours for acute pain. Discharge Instructions Instructions: Cholecystectomy (DC) Additional Instructions: Your procedure went well and your gallbladder was mildly inflamed indicating early infection. You have skin glue on your incisions. This will peel off on its own in 10-14 days. Please do not rub at your incisions. You may shower 48hrs af ter surgery and pat your incisions dry after. For pain control please use tylenol, ibuprofen and ice as well as the pain medication prescribed as needed. Do not lift >20 lbs for 4 weeks after surgery to reduce the risk of hernia. The general surgery clinic will call you to set up a follow up appointment in 2 weeks. If you have any questions or concerns in the interim please call the general surgery clinic. Stand Alone Forms: Portal Information Referrals: Jo Ann Blevins MD [ [facility] STAFF PHYSICIAN, Surgery] Activity:: Activity as Tolerated Equipment/Supplies:: No Equipment Needed Diet:: As Tolerated Discharge Orders Discharge Orders: Discharge Order (Routine); Ordered 08/05/25 Ordered By: Vel Landa Discharge Data Discharge Date/Time-TO BE ENTERED AT DEPARTURE: 08/05/25 12:04 DS: Summary Time Spent with Patient providing and/or coordinating discharge services: Less than 30 minutes Status at Discharge Functional status at discharge: independent ambulation Overall status at discharge: patient is back to baseline Mental Status: mental status grossly normal Speech and Movement: speech and movement normal Mood: congruent mood Affect: normal affect Exam Narrative Exam Narrative: General: This is a pleasant, obese woman in no distress HEENT: Normocephalic, atraumatic CV: RRR Resp: CTAB Abd: soft, severe pain with epigastric palpation, +[place] MSK: voluntary motion x4 Neuro: awake, alert, no focal deficits Psych Mental Status: mental status grossly normal Speech and Movement: speech and movement normal Mood: congruent mood Affect: normal affect DS: Data Vitals/I&O Vitals and I&O: Vital Signs Temperature 37.2 C 08/05/25 08:08 Temperature Source Temporal Artery Scan 08/05/25 08:08 Pulse 78 08/05/25 08:08 Pulse 87 08/03/25 17:01 Respiratory Rate 16 08/05/25 08:08 Respiratory Effort Normal, Non-Labored 08/03/25 19:17 Respiratory Depth Normal 08/03/25 19:17 Respiratory Pattern Normal 08/03/25 19:17 Blood Pressure 160/70 H 08/05/25 08:08 Blood Pressure Mean 100 08/05/25 08:08 Blood Pressure Position Supine 08/03/25 15:07 Pulse Oximetry 99 08/05/25 08:08 Respiratory End-tidal CO2 18 08/04/25 14:41 Oxygen Delivery Method Room Air 08/05/25 08:08 Oxygen Flow Rate 0 08/05/25 08:08 Pain Level 5 08/05/25 08:34 Comment pt refused..pt asleep..RN notified 08/05/25 02:58 Intake & Output 08/04/25 08/04/25 08/05/25 11:59 23:59 11:59 Intake Total 1300 / 3700 2400 / 3700 Balance 1300 / 3700 2400 / 3700 Weight 86.7 kg Intake: IV 1300 / 3300 2000 / 3300 Oral 400 / 400 Other: Urine Color Yellow Pale Yellow Yellow Urine Appearance Clear Clear Clear Urine Odor Normal Normal Comment voids independent in toilet unmeasureable amount of urine in the tolie t Pt voids an immeasurable amount into the toilet. Emesis Description None Data Completed and Pending Pending Labs at Discharge: 08/03/25 08/03/25 08/03/25 15:22 16:20 16:35 WBC 7.44 RBC 4.63 Hgb 13.2 Hct 40.5 MCV 88 MCH 28.5 MCHC 32.6 RDW 13.8 Plt Count 243 MPV 9.5 Immature Gran % 0.1 Neutrophils % 74.7 Lymphocytes % 16.3 Monocytes % 4.7 Eosinophils % 3.9 Basophils % 0.3 Nucleated RBC % 0.0 Absolute Neutrophils 5.56 Absolute Lymphocytes 1.21 Absolute Monocytes 0.35 Absolute Eosinophils 0.29 Absolute Basophils 0.02 VBG Lactate 2.2 H* Sodium 140 Potassium 3.9 Chloride 105 Carbon Dioxide 26.4 Anion Gap 8.6 BUN 20 Creatinine 0.81 Est GFR (CKD-EPI 2020) 68.10 Glucose 158 H Calcium 9.3 Magnesium 2.1 Total Bilirubin 0.5 AST 36 H ALT 32 Alkaline Phosphatase 121 H Troponin I 7 8 Total Protein 7.0 Albumin 4.3 Triglycerides Total Cholesterol LDL Cholesterol, Calc HDL Cholesterol Lipase 31 Urine Color Yellow Urine Clarity Clear Urine pH 7.0 Ur Specific [place] 1.015 Urine Protein Negative Urine Ketones Negative Urine Blood Negative Urine Nitrite Negative Urine Bilirubin Negative Urine Urobilinogen 0.2 Ur Leukocyte Esterase Negative Urine Glucose Negative 08/04/25 07:17 WBC 5.90 RBC 4.31 Hgb 12.8 Hct 38.5 MCV 89 MCH 29.7 MCHC 33.2 RDW 14.0 Plt Count 192 MPV 9.4 Immature Gran % 0.3 Neutrophils % 66.2 Lymphocytes % 20.5 Monocytes % 6.1 Eosinophils % 6.6 Basophils % 0.3 Nucleated RBC % 0.0 Absolute Neutrophils 3.90 Absolute Lymphocytes 1.21 Absolute Monocytes 0.36 Absolute Eosinophils 0.39 Absolute Basophils 0.02 VBG Lactate 1.7 Sodium 144 Potassium 4.0 Chloride 111 H Carbon Dioxide 24.1 Anion Gap 8.9 BUN 14 Creatinine 0.84 Est GFR (CKD-EPI 2020) 65.30 Glucose 108 H Calcium 8.6 Magnesium Total Bilirubin 0.7 AST 33 ALT 30 Alkaline Phosphatase 96 Troponin I Total Protein 6.2 Albumin 3.8 Triglycerides 119 Total Cholesterol 170 LDL Cholesterol, Calc 90.6 HDL Cholesterol 56 Lipase Urine Color Urine Clarity Urine pH Ur Specific [place] Urine Protein Urine Ketones Urine Blood Urine Nitrite Urine Bilirubin Urine Urobilinogen Ur Leukocyte Esterase Urine Glucose [facility] All Active Problems (Updated 08/06/25 @ 00:01 by MARGARITO COFFMAN) Benign essential hypertension (Acute) Pain of paraspinal muscle (Acute) Scapulothoracic bursitis of right shoulder (Acute) Retinal artery branch occlusion (Acute) Pain in joint involving lower leg (Acute) Chronic cough (Acute) Anxiety (Chronic) Spinal stenosis (Acute) Shoulder pain, bilateral (Acute) Arthritis (Acute) Intermittent palpitations (Acute) Renal insufficiency (Chronic) Leg cramps (Acute) Low back pain (Acute) Painful total knee replacement, right (Acute) Right knee pain (Acute) Trigger ring finger of left hand (Acute) Rotator cuff tear arthropathy of both shoulders (Acute) Status post replacement of left shoulder joint (Acute 02/27/17) Status post replacement of right shoulder joint (Acute ~03/2018) Trochanteric bursitis, right hip (Acute) Injection: 09/28/2020 Arthritis of right hip (Acute) 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 Paulina Eng Arthroscopy, Shoulder right Family History Mother Cancer Hypertension Stroke Sister Carpal tunnel syndrome Other Diabetes Social History Smoking/Tobacco Use Status: Former Tobacco Use Tobacco: How many years used: 45 Smoking risk assessment performed?: Yes Alcohol Intake: never Details: OCCASIONAL Drug use: Never Substance use type: does not use Household members: spouse Housing: house Number of Children: 3 Current gender identity: male Do you feel safe at home: Yes Do you feel safe in your relationship?: Yes Time Spent with Patient Time Spent with Patient: <45 minutes Time was spent: preparing to see the patient(eg.review tests), obtaining and/or reviewing separately toney vaca ordering medications,tests, procedures, referring, communicating with other health career manager, indepentently interpreting results, counseling the patient and care coordination
--- NOTE | 2025-08-05 09:23 | PDOC.CMDIS ---
Date of service: 08/05/25 Time of Service: 09:23 LACE Index Scoring Tool Questions: Length of Stay (in days): 2 Was the patient admitted via the E.D.?: Yes E.D. Visits: 1 Answers: Total Score: 6 Risk of Readmission: Low Risk Care Management Discharge Plan Reason for Hospitalization: Abdominal Pain Discharge Plan: Sonia is discharged home via private vehicle with family. Patient will follow up with community providers and continue per her discharge plan of care. No new services were ordered on discharge. Patient/Family Education Needs: Review discharge instructions, discuss ask me three.
--- NOTE | 2025-08-05 09:30 | W.PM.PROGNOT ---
Date of Service Date of service: 08/05/25 Time of Service: 09:30 Assessment and Plan Assessment and plan (1) Acute cholecystitis: Status: Acute Assessment and plan: Patient is a 79-year-old female who presented to the ED with right upper quadrant pain and associated nausea. Her further workup was concerning for acute cholecystitis. Given these findings a cholecystectomy was discussed with her. She is now postop day 1 status post laparoscopic cholecystectomy. She is recovering appropriately. Her pain is well-controlled. She has been tolerating a diet and ambulating without assistance. She is appropriate for discharge home today. Her postoperative instructions were provided. She will follow-up in the general surgery clinic in 2 weeks. Subjective Subjective Interval history since last seen: She notes she is doing well this morning. Her main complaint is right shoulder pain. She denies any fevers, chills, nausea, vomiting. She was able to tolerate breakfast without difficulty. She has been ambulating and urinating appropriately. Exam Narrative Exam Narrative: General: Well appearing, no acute distress. Skin: Good turgor, no visible rashes or lesion HEENT: Normocephalic, atraumatic CV: Regular rate Lungs: Bilateral equal chest rise, non-labored breathing Abdomen: Soft, non-distended, appropriately tender surrounding epigastric incision, mild ecchymosis surrounding incisions, incisions intact with dermabond Extremities: Warm, well perfused Neurologic: No focal deficits Psychiatric: Alert and oriented, normal mood and affect Objective Last Vital Signs Temp 37.2 C 08/05/25 08:08 Pulse 78 08/05/25 08:08 Resp 16 08/05/25 08:08 BP 160/70 H 08/05/25 08:08 Pulse Ox 99 08/05/25 08:08 VTE Prohylaxis Risk Level: Moderate/High Risk Contraindications: Other (possible surgery) Prophylaxis: Mechanical Time Spent with Patient Time Spent with Patient: <25 minutes Time was spent: preparing to see the patient(eg.review tests), obtaining and/or reviewing separately otained hiistory and counseling the patient
== END 2025-08-05 12:04 | disposition home or self-care (01) ==
LOC: ER 17:18 → MS 18:01
PROVIDERS: Family Medicine; Student in an Organized Health Care Education/Training Program; Admitting Provider Family Medicine; Emergency Provider Physician Assistant; PCP Family Medicine; Responsible Provider Family Medicine; Visit Provider Family Medicine
PROC: 0FT44ZZ Resection of Gallbladder, Percutaneous Endoscopic Approach (ICD-10-PCS; CPT 47562; principal; 2025-08-04 11:00)
DX: A41.9 Sepsis, unspecified organism (principal); K81.0 Acute cholecystitis; R65.20 Severe sepsis without septic shock; E87.20 Acidosis, unspecified; I10 Essential (primary) hypertension; E11.9 Type 2 diabetes mellitus without complications; K21.9 Gastro-esophageal reflux disease without esophagitis; R05.3 Chronic cough; F41.9 Anxiety disorder, unspecified; M48.00 Spinal stenosis, site unspecified; R25.2 Cramp and spasm; Z96.611 Presence of right artificial shoulder joint; Z96.612 Presence of left artificial shoulder joint; M54.17 Radiculopathy, lumbosacral region; Z96.653 Presence of artificial knee joint, bilateral
CPT/HCPCS: 47562; 00123; 36415; 71275; 80053; 80061; 83690; 93005; 96361; 96365; 96375; 99223; 99285; 74174; 76705; 81003; 83605; 83735; 84484; 85025; 88304; 93010; 99222; 99233; 99238; G0378; J0131; J0690; J1100; J1200; J2003; J2270; J2405; J2543; J2704; J3010; J3490